=== PATIENT | female | born 1970 | race Caucasian/White ===

== ENCOUNTER → 2017-12-07 | Outpatient (CLI) | payer OTHER ==
--- NOTE | 2017-12-08 13:12 | MM ---
Reason for exam: screening (asymptomatic). Last mammogram was performed 1 year and 11 months ago. History: Took hormonal contraceptives for 10 years. Physical Findings: A clinical breast exam by your physician is recommended on an annual basis and results should be correlated with mammographic findings. MG Screening Mammo w CAD Bilateral CC and MLO view(s) were taken. Prior study comparison: January 14, 2016, bilateral MG screening mammo w CAD. January 04, 2014, bilateral digital screening mammo w/CAD. The breast tissue is heterogeneously dense. This may lower the sensitivity of mammography. There is no discrete abnormality. No significant changes when compared with prior studies. ASSESSMENT: Negative, BI-RAD 1 RECOMMENDATION: Routine screening mammogram of both breasts in 1 year.
== END | disposition home or self-care (01) ==
LOC: RADMAMWWP 16:59
PROVIDERS: ATTEND Obstetrics & Gynecology
DX: Z12.31 Encounter for screening mammogram for malignant neoplasm of breast (principal)
CPT/HCPCS: 77067

== ENCOUNTER 2018-10-03 02:33 | Inpatient (IN) | payer MEDICAID, OTHER ==
--- NOTE | 2018-10-03 03:09 | ED ---
General Adult HPI - General Chief complaint: Psychiatric Symptoms Stated complaint: mental health Time Seen by Provider: 10/03/18 02:48 Source: patient, RN notes reviewed, old records reviewed Mode of arrival: wheelchair Limitations: altered mental status - History of Present Illness Initial comments: 47-year-old female with history of psychiatric illness presents for mental health evaluation. Patient's states that the [place] government is out to get her, she told her family that they were planning to take her to [place] in the morning. According to her family members she has a daughter who has been admitted for psychiatric purposes in the past. And patient does have history of mental illness. Uncertain of what medication she is on. She states that she has infection, from her eyes. She is alert and oriented 3. The remainder of her comments are incoherent and nonsensical. Review of Systems ROS Statement: Those systems with pertinent positive or pertinent negative responses have been documented in the HPI. ROS Other: All systems not noted in ROS Statement are negative. Past Medical History Past Medical History: Diabetes Mellitus History of Any Multi-Drug Resistant Organisms: None Reported Past Surgical History: Section Past Psychological History: PTSD Smoking Status: Former smoker Past Alcohol Use History: None Reported Past Drug Use History: None Reported General Exam Limitations: altered mental status General appearance: alert, in no apparent distress Head exam: Present: atraumatic, normocephalic Eye exam: Present: normal appearance, PERRL ENT exam: Present: normal exam Neck exam: Present: normal inspection. Absent: tenderness, meningismus Respiratory exam: Present: normal lung sounds bilaterally. Absent: respiratory distress, wheezes Cardiovascular Exam: Present: regular rate, normal rhythm GI/Abdominal exam: Present: soft. Absent: distended, tenderness Extremities exam: Present: normal inspection, normal capillary refill. Absent: pedal edema Neurological exam: Present: alert, oriented X3. Absent: motor sensory deficit Expanded Focused psych exam: Present: pressured speech, psychomotor agitation, delusional , paranoid, flight of ideas Skin exam: Present: warm, dry, intact Course Vital Signs 10/03/18 02:57 Temperature 98.2 F Pulse Rate 120 H Respiratory 18 Rate Blood Pressure 148/93 O2 Sat by Pulse 95 Oximetry Medical Decision Making - Medical Decision Making 27-year-old female presenting for mental health evaluation. Patient is medically cleared and evaluated by EPS. She will be admitted to this institution for further psychiatric evaluation and treatment. Disposition Clinical Impression: Acute psychosis Disposition: ADMITTED IP TO THIS [facility] Condition: Stable Is patient prescribed a controlled substance at d/c from ED?: No Referrals: None,Stated [Primary Care Provider] - 1-2 days Decision to Admit Reason: Admit from EC Decision Date: 10/03/18 Decision Time: 05:23
[2018-10-03] MEDS ORDERED: MAG HYDROX/AL HYDROX/SIMETH 30 ML CUP PO PRN (07:27)
[2018-10-03] MEDS ORDERED: ZIPRASIDONE 20 MG VIAL IM PRN (07:27)
[2018-10-03] MEDS ORDERED: MAGNESIUM HYDROXIDE 2,400 MG/10 ML CUP PO PRN (07:27)
[2018-10-03] MEDS ORDERED: LORazepam 1 MG TAB PO PRN (07:27)
[2018-10-03] MEDS ORDERED: ACETAMINOPHEN TAB 325 MG TAB PO PRN (07:27)
[2018-10-03] MEDS: NICOTINE 14MG/24HR PATCH TRANSDERM SCH (09:50)
[2018-10-03] MEDS ORDERED: HALOPERIDOL LACTATE 5 MG/ML 1 ML VIAL IM PRN (10:03)
--- NOTE | 2018-10-03 10:15 | P.HP ---
Psychiatric H&P - . H&P Date: 10/03/18 History & Physical: Allergies Allergy/AdvReac Type Severity Reaction Status Date / Time No Known Allergies Allergy Unverified 10/03/18 07:27 Vital Signs Temp 100.2 F H 10/03/18 07:23 Pulse 115 H 10/03/18 07:23 Resp 18 10/03/18 07:23 BP 135/92 10/03/18 07:23 Pulse Ox 99 10/03/18 07:23 Intake & Output 10/02/18 10/03/18 10/03/18 18:59 06:59 18:59 Weight 79.379 kg 79.5 kg Assessment and Plan Assessment: HPI: This is a 47-year-old female with history of psychiatric illness presents for mental health evaluation. Patient's states that the [place] [employer] is out to get her, she told her family that they were planning to take her to [place] in the morning. According to her family members she has a daughter who has been admitted for psychiatric purposes in the past. And patient does have history of mental illness. Uncertain of what medication she is on. She states that she has infection, from her eyes. She is alert and oriented 3. The remainder of her comments are incoherent and nonsensical. patient presents to ED with family due to acute psychosis. patient refused to get out of vehicle, patient yelling, swearing, and states " youre not safe in your home because the [facility] is recording you while you're having sex and showing everyone Past Medical History Past Medical History: Diabetes Mellitus History of Any Multi-Drug Resistant Organisms: None Reported Past Surgical History: Section Past Psychological History: PTSD Smoking Status: Former smoker Past Alcohol Use History: None Reported Past Drug Use History: None Reported Musculoskeletal Examination - Abnormal/Involuntary Movements: [none, tremors, spasm, tics] Strength: [greater than antigravity (greater than/equal to 3/5) in all extremities, weakness:] Muscle Tone: [no impairment, dystonia, hypertonic/myoclonus, rigidity, flaccid] Gait: [grossly normal, antalgic, limping, in wheelchair, wide-based] Station: [grossly normal, unsteady, in wheelchair] Mental Status Examination - General Appearance: [ bizarre, appears older than stated age Speech/Language mute Attitude/Behavior: [guarded, irritable, withdrawn] Mood: [depressed affect, anxious, irritable, angry, fearful, hopelessness Affect: [ labile, blunted constricted Orientation: [unable to participate time, person, place situation] Thought Content: [ delusions, obsessions, phobias, other] Risk Factors: [???suicidal (ideations, plan), and/or Homicidal (ideations, plan) , other] Perception: [hallucinations (auditory, visual, tactile), other] Thought Processes: [ concrete, circumstantial, tangential Concentration/Attention Span: [ impaired] [Per observation and interview with the patient] Recent Memory: [ impaired] [0, 1, 2 or 3 out of 3 in 3 minutes] Remote Memory: [ impaired] [past events, as related history] Intelligence: [below average] [based on history, based on vocabulary, syntax, grammar, and content] Judgement: [ poor] [per patient's behavior/history of present illness] Insight: [ poor] [understanding severity of illness/history of present illness] Admitting Diagnosis: [bipolar affective disorder versus schizoaffective bipolar type] Patient Strengths - Setting and pursuing goals, hopes, dreams, aspirations: [x] Resources - social, interpersonal, monetary: [x] Patient Limitations: [medication, non-compliance, pathological/unsupported environment, no interests, intellectual impairment, Initial Plan of Care: [patient admitted on involuntary basis to psychiatric unit due to her inability to communicate and function and with her acute psychosis which present which decrease a communication barrier. She will also( haloperidol 2 mg so further evaluation of patient is able to include laboratory work that medicine needs and further psychiatric care. She'll be evaluated by nursing staff, social work and recreational therapy to be integrated in a hansen milieu therapeutic environment whereby she will be staffed and a multidisciplinary team approach on a daily basis for her progress and disposition.] Estimated Length of Stay: [5-7] Initial Discharge Plan: [[facility], [facility], referred to therapist Prognosis: guarded] Justification for Inpatient Hospitalization - [Hallucinations, delusions, agitation, anxiety, depression resulting in significant loss of functioning.] [Dangerous to self, others, or property with need for controlled environment.] [Emotional or behavioral conditions and complications requiring 24 hour medical and nursing care.] [Need for special drug therapy, or other therapeutic program requiring continuous hospitalization.] [Failure of social or occupational functioning.] [Inability to meet basic life and health needs.] [Legally mandated admission.] [ (1) Acute psychosis Current Visit: Yes Status: Acute Priority: High Code(s): F23 - BRIEF PSYCHOTIC DISORDER SNOMED Code(s): 88775178 Time with Patient: Less than 30
[2018-10-03] MEDS: SODIUM CHLORIDE 0.9% 1,000 ML IV SCH ×2 (10:27→12:29)
[2018-10-03 12:57] LABS: Glucose,Whole Blood 157 mg/dL (75-99)
[2018-10-03 15:28] LABS: Basophils % (A) 0 %; Eosinophils # (A) 0.1 k/uL (0-0.7); Eosinophils % (A) 1 %; HCT 40.8 % (34.0-46.0); HGB 13.6 gm/dL (11.4-16.0); Lymphocytes # (A) 1.9 k/uL (1.0-4.8); Lymphocytes % (A) 22 %; MCHC 33.4 g/dL (31.0-37.0); MCV 89.9 fL (80.0-100.0); Mean Platelet Volume 6.6; Monocytes # (A) 0.5 k/uL (0-1.0); Monocytes % (A) 5 %; Neutrophils # (A) 6.1 k/uL (1.3-7.7); Neutrophils % (A) 71 %; Platelet Count 338 k/uL (150-450); RBC 4.54 m/uL (3.80-5.40); WBC 8.6 k/uL (3.8-10.6)
[2018-10-03 15:43] LABS: ALT 27 U/L (9-52); AST 23 U/L (14-36); Albumin 4.9 g/dL (3.5-5.0); Alkaline Phosphatase 88 U/L (38-126); Anion Gap 18 mmol/L; Bilirubin, Delta 0.2 mg/dL (0.0-0.2); Bilirubin,Unconjugated 0.6 mg/dL (0.0-1.1); Blood Urea Nitrogen 15 mg/dL (7-17); Calcium 10.7 mg/dL (8.4-10.2); Carbon Dioxide 23 mmol/L (22-30); Chloride 99 mmol/L (98-107); Cholesterol 180 mg/dL (<200); Glucose 147 mg/dL (74-99); HDL Cholesterol 72 mg/dL (40-60); LDL Cholesterol,Calculated 85 mg/dL (0-99); Potassium 3.8 mmol/L (3.5-5.1); Sodium 140 mmol/L (137-145); Total Bilirubin 0.8 mg/dL (0.2-1.3); Total Protein 8.1 g/dL (6.3-8.2); Triglycerides 116 mg/dL (<150)
--- NOTE | 2018-10-03 16:08 | XR ---
EXAMINATION TYPE: XR chest 1V DATE OF EXAM: 10/03/2018 COMPARISON: None INDICATION: Fever TECHNIQUE: Single frontal view of the chest is obtained. FINDINGS: The heart size is normal. The pulmonary vasculature is normal. The lungs are clear. IMPRESSION: 1. No acute pulmonary process.
--- NOTE | 2018-10-03 16:42 | P.HPMEDMHU ---
History of Present Illness H&P Date: 10/03/18 Chief Complaint: Consult for MHU HPI The patient is a 47-year-old female with a history of psychiatric illnesses and that is admitted to the mental health unit with acute psychosis. Apparently the patient was having paranoid delusions of persecution reporting that the [place] [employer] was out to get her and planning to take her to [place], she also mentioned that she was not safe in her home as [facility] was reporting you while you were having sex and showing everyone the patient told EPS that she had an infection from her eyes but otherwise her comments were incoherent nonsensical due to her psychosis. The patient was not able to provide me with any medical history and was noncooperative and refused to answer any questions and was pretty mute during my interview and was refusing to have any lab work drawn. However review of the patient's record indicates that the patient was tachycardic and was noted to have a low-grade temperature of 100.2, also appears to have that type 2 diabetes listed under her past medical history Review of Systems ROS unobtainable: due to mental status (Patient mute and and uncooperative) Past Medical History Past Medical History: Diabetes Mellitus History of Any Multi-Drug Resistant Organisms: None Reported Past Surgical History: Section Past Psychological History: PTSD Smoking Status: Former smoker Past Alcohol Use History: None Reported Past Drug Use History: None Reported Medications and Allergies Allergies Allergy/AdvReac Type Severity Reaction Status Date / Time No Known Allergies Allergy Unverified 10/03/18 07:27 Physical Exam Vitals: Vital Signs Temp Pulse Pulse Resp BP BP Pulse Ox 10/03/18 16:07 98.4 F 124 H 16 143/88 98 10/03/18 07:23 100.2 F H 115 H 18 135/92 99 10/03/18 07:05 97.9 F 98 18 138/84 97 10/03/18 02:57 98.2 F 120 H 18 148/93 95 Intake and Output 10/03/18 10/03/18 10/03/18 06:59 14:59 22:59 Other: Weight 79.379 kg 79.5 kg Constitutional: Appears disheveled, mute, uncooperative Eyes: Anicteric sclerae, moist conjunctiva, no lid-lag, PERRLA ENMT: NC/AT,Oropharynx clear, no erythema, exudates Neck:Supple, FROM, no masses, or JVD, No carotid bruits; No thyromegaly Lungs: Clear to auscultation, Clear to percussion, Normal respiratory effort, no accessory muscle use Cardiovascular: Tachycardic with regular rhythm No murmurs, gallops, or rubs no peripheral edema Abdominal: Soft Nontender, nom distended, no guarding, no rebound or rigidity, Normoactive bowel sounds No hepatomegaly, No splenomegaly, No palpable mass No abdominal wall hernia noted Skin: Normal temperature, tone, texture, turgor, No induration No subcutaneous nodules, No rash, lesions, No ulcers Extremities:No digital cyanosis No clubbing, Pedal pulses intact and symmetrical Radial pulses intact and symmetrical Normal gait and station, No calf tenderness Psychiatric: Disheveled, confused, reportedly removing her clothing in public areas, Neuro: Muscles Strength 5/5 in all 4 extremities, Sensation to light touch grossly present throughout, Cranial nerves II-XII grossly intact. No focal sensory deficits Cranial Nerve Examination - Cranial Nerves Cranial Nerve II- Optic: Intact Cranial Nerve III- Oculomotor: Intact Cranial Nerve IV- Trochlear: Intact Cranial Nerve V- Trigeminal: Intact Cranial Nerve - Abducens: Intact Cranial Nerve VII- Facial: Intact Cranial Nerve VIII- Auditory: Intact Cranial Nerve IX- Glossopharyngeal: Intact Cranial Nerve X- Vagus: Intact Cranial Nerve XI- Accessory: Intact Cranial Nerve XII- Hypoglossal: Intact Results CBC & Chem 7: 10/03/18 15:16 10/03/18 15:16 Labs: Abnormal Lab Results - Last 24 Hours (Table) 10/03/18 10/03/18 Range/Units 12:43 15:16 Glucose 147 H (74-99) mg/dL POC Glucose (mg/dL) 157 H (75-99) mg/dL Calcium 10.7 H (8.4-10.2) mg/dL HDL Cholesterol 72 H (40-60) mg/dL Assessment and Plan (1) Acute psychosis Current Visit: Yes Status: Acute Priority: High Code(s): F23 - BRIEF PSYCHOTIC DISORDER SNOMED Code(s): 21617970 (2) Fever Current Visit: Yes Status: Acute Code(s): R50.9 - FEVER, UNSPECIFIED SNOMED Code(s): 235195963 (3) Tachycardia Current Visit: Yes Status: Acute Code(s): R00.0 - TACHYCARDIA, UNSPECIFIED SNOMED Code(s): 6248026 (4) Type 2 diabetes mellitus with hyperglycemia Current Visit: Yes Status: Acute Code(s): E11.65 - TYPE 2 DIABETES MELLITUS WITH HYPERGLYCEMIA SNOMED Code(s): 212687247966243 Plan: She was admitted to the mental health unit with acute psychosis will defer to acute inpatient psychiatry team regarding ongoing psychotropic therapy with cognitive behavioral therapy. Medically speaking the patient is tachycardic and febrile, there is concern for sirs possible sepsis, we'll obtain a CBC, CMP , serum lactate, UDS, urinalysis checks x-ray and blood cultures and proceed from there. Given patient's history also possibility of serotonin syndrome versus possible nopecific viral-type illness. We'll continue to follow her clinical course
[2018-10-03 18:07] LABS: Appearance,Urine Cloudy (Clear); Bacteria,Urine Occasional /hpf; Bilirubin,Urine Negative (Negative); Blood,Urine Negative (Negative); Color,Urine Yellow; Glucose,Urine (UA) Negative (Negative); Ketones,Urine 2+ (Negative); Leukocyte Esterase,Urine Small (Negative); Mucus,Urine Moderate /hpf; Nitrite,Urine Negative (Negative); Protein,Urine Trace (Negative); RBC,Urine 2 /hpf (0-5); Specific Gravity,Urine 1.013 (1.001-1.035); Squamous Epithelial Cell,Urine 3 /hpf (0-4); Urobilinogen,Urine <2.0 mg/dL (<2.0)
[2018-10-03 18:16] LABS: Amphetamine Screen,Urine Not Detected (NotDetected); Barbiturate Screen,Urine Not Detected (NotDetected); Benzodiazepines Screen,Urine Not Detected (NotDetected); Cocaine Screen,Urine Not Detected (NotDetected); Methadone Screen, Urine Not Detected (NotDetected); Opiate Screen,Urine Not Detected (NotDetected); Oxycodone Screen, Urine Not Detected (NotDetected); Phencyclidine Screen,Urine Not Detected (NotDetected); Tricyclic Antidepressant,Urine Not Detected (NotDetected); Urn Cannabinoid Scrn Not Detected (NotDetected)
[2018-10-03 21:27] LABS: Glucose,Whole Blood 113 mg/dL (75-99)
[2018-10-04 02:01] LABS: Glucose,Whole Blood 167 mg/dL (75-99)
[2018-10-04 05:05] LABS: Hemoglobin A1C 6.1 % (4.0-6.0)
[2018-10-04 06:38] LABS: Glucose,Whole Blood 110 mg/dL (75-99)
[2018-10-04] MEDS: NICOTINE 14MG/24HR PATCH TRANSDERM SCH (09:05)
--- NOTE | 2018-10-04 11:42 | P.PN ---
Subjective Progress Note Date: 10/04/18 Principal diagnosis: major depressive disorder-acute psychosis I feel so exhausted and tired and fatigued I not been able to sleep and the last 2 days. The doctor I saw [facility] had raised by Seroquel to 600 mg XL her and then decreased it to 300 mg and I felt weak dizzy and fell backwards and hit my head. 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 She has been and and has 2 children. She is on Medicaid and no other support. She lives alone and struggles about living alone with minimal financial assistance. Objective - Vital Signs Vital signs: Vital Signs Temp 98.2 F 10/04/18 01:22 Pulse 112 H 10/04/18 06:24 Resp 14 10/04/18 06:24 BP 121/76 10/04/18 06:24 Pulse Ox 95 10/03/18 21:18 Intake & Output 10/03/18 10/04/18 10/04/18 18:59 06:59 18:59 Weight 79.5 kg - Labs CBC & Chem 7: 10/03/18 15:16 10/03/18 15:16 Labs: Abnormal Lab Results - Last 24 Hours (Table) 10/03/18 10/03/18 10/03/18 Range/Units 12:43 15:16 15:16 Glucose 147 H (74-99) mg/dL POC Glucose (mg/dL) 157 H (75-99) mg/dL Hemoglobin A1c 6.1 H (4.0-6.0) % Calcium 10.7 H (8.4-10.2) mg/dL HDL Cholesterol 72 H (40-60) mg/dL Urine Appearance (Clear) Urine Protein (Negative) Urine Ketones (Negative) Ur Leukocyte Esterase (Negative) Urine WBC (0-5) /hpf Urine Bacteria (None) /hpf Urine Mucus (None) /hpf 10/03/18 10/03/18 10/04/18 Range/Units 18:01 21:23 01:49 Glucose (74-99) mg/dL POC Glucose (mg/dL) 113 H 167 H (75-99) mg/dL Hemoglobin A1c (4.0-6.0) % Calcium (8.4-10.2) mg/dL HDL Cholesterol (40-60) mg/dL Urine Appearance Cloudy H (Clear) Urine Protein Trace H (Negative) Urine Ketones 2+ H (Negative) Ur Leukocyte Esterase Small H (Negative) Urine WBC 11 H (0-5) /hpf Urine Bacteria Occasional H (None) /hpf Urine Mucus Moderate H (None) /hpf 10/04/18 Range/Units 06:37 Glucose (74-99) mg/dL POC Glucose (mg/dL) 110 H (75-99) mg/dL Hemoglobin A1c (4.0-6.0) % Calcium (8.4-10.2) mg/dL HDL Cholesterol (40-60) mg/dL Urine Appearance (Clear) Urine Protein (Negative) Urine Ketones (Negative) Ur Leukocyte Esterase (Negative) Urine WBC (0-5) /hpf Urine Bacteria (None) /hpf Urine Mucus (None) /hpf Microbiology - Last 24 Hours (Table) 10/03/18 18:01 Urine Culture - Preliminary Urine,Voided Assessment and Plan Assessment: HPI: This is a 47-year-old female with history of psychiatric illness presents for mental health evaluation. Patient's states that the [place] [employer] is out to get her, she told her family that they were planning to take her to [place] in the morning. According to her family members she has a daughter who has been admitted for psychiatric purposes in the past. And patient does have history of mental illness. Uncertain of what medication she is on. She states that she has infection, from her eyes. She is alert and oriented 3. The remainder of her comments are incoherent and nonsensical. patient presents to ED with family due to acute psychosis. patient refused to get out of vehicle, patient yelling, swearing, and states " youre not safe in your home because the [facility] is recording you while you're having sex and showing everyone Past Medical History Past Medical History: Diabetes Mellitus History of Any Multi-Drug Resistant Organisms: None Reported Past Surgical History: Section Past Psychological History: PTSD Smoking Status: Former smoker Past Alcohol Use History: None Reported Past Drug Use History: None Reported Musculoskeletal Examination - Abnormal/Involuntary Movements: [none, tremors, spasm, tics] Strength: [greater than antigravity (greater than/equal to 3/5) in all extremities, weakness:] Muscle Tone: [no impairment, dystonia, hypertonic/myoclonus, rigidity, flaccid] Gait: [grossly normal, antalgic, limping, in wheelchair, wide-based] Station: [grossly normal, unsteady, in wheelchair] Mental Status Examination - General Appearance: [ bizarre, appears older than stated age Speech/Language mute Attitude/Behavior: [guarded, irritable, withdrawn] Mood: [depressed affect, anxious, irritable, angry, fearful, hopelessness Affect: [ labile, blunted constricted Orientation: [unable to participate time, person, place situation] Thought Content: [ delusions, obsessions, phobias, other] Risk Factors: [???suicidal (ideations, plan), and/or Homicidal (ideations, plan) , other] Perception: [hallucinations (auditory, visual, tactile), other] Thought Processes: [ concrete, circumstantial, tangential Concentration/Attention Span: [ impaired] [Per observation and interview with the patient] Recent Memory: [ impaired] [0, 1, 2 or 3 out of 3 in 3 minutes] Remote Memory: [ impaired] [past events, as related history] Intelligence: [below average] [based on history, based on vocabulary, syntax, grammar, and content] Judgement: [ poor] [per patient's behavior/history of present illness] Insight: [ poor] [understanding severity of illness/history of present illness] Admitting Diagnosis: [Major depressive disorder with acute psychosis and Effexor withdrawal] Patient Strengths - Setting and pursuing goals, hopes, dreams, aspirations: [x] Resources - social, interpersonal, monetary: [x] Patient Limitations: [medication, non-compliance, pathological/unsupported environment, no interests, intellectual impairment, Initial Plan of Care: [patient admitted on involuntary basis to psychiatric unit due to her inability to communicate and function and with her acute psychosis which present which decrease a communication barrier. She will also( haloperidol 2 mg so further evaluation of patient is able to include laboratory work that medicine needs and further psychiatric care. She'll be evaluated by nursing staff, social work and recreational therapy to be integrated in a hansen milieu therapeutic environment whereby she will be staffed and a multidisciplinary team approach on a daily basis for her progress and disposition.] Estimated Length of Stay: [6] Initial Discharge Plan: [home, [facility], referred to therapist Prognosis: guarded] Justification for Inpatient Hospitalization - [Hallucinations, delusions, agitation, anxiety, depression resulting in significant loss of functioning.] [Dangerous to self, others, or property with need for controlled environment.] [Emotional or behavioral conditions and complications requiring 24 hour medical and nursing care.] [Need for special drug therapy, or other therapeutic program requiring continuous hospitalization.] [Failure of social or occupational functioning.] [Inability to meet basic life and health needs.] [Legally mandated admission.] [ (1) Acute psychosis Current Visit: Yes Status: Acute Priority: High Code(s): F23 - BRIEF PSYCHOTIC DISORDER SNOMED Code(s): 01227575 Plan: She has severe anxiety and will start with clonidine 0.1 mg twice a day, restart her Effexor at 75 mg XL by mouth daily at bedtime, Mirapex 0.5 mg by mouth daily at bedtime due to the fact that she was having difficulty with insomnia and Seroquel 600 mg was not helping.. She has more of a major depressive disorder with psychosis and Effexor withdrawal than any other diagnosis. 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 Time with Patient: Greater than 30
[2018-10-04 20:23] LABS: Glucose,Whole Blood 258 mg/dL (75-99)
[2018-10-04] MEDS ORDERED: VENLAFAXINE HCL ER 75 MG CAP PO SCH (21:00)
[2018-10-04] MEDS: NEOMYCIN-POLYMYXIN-HC OPHTH DROPS 7.5 ML BTL BOTH EYES SCH (22:21)
[2018-10-04] MEDS: PRAMIPEXOLE 0.5 MG TAB PO SCH (22:21)
[2018-10-04] MEDS: cloNIDine HCL 0.1 MG TAB PO SCH (22:21)
[2018-10-04] MEDS: INSULIN ASPART 100 UNIT/ML 1 ML 10 ML VIAL SQ SCH (22:26)
[2018-10-05] MEDS: SULFAMETHOX-TMP 800-160MG 1 EACH TAB PO SCH ×3 (00:10→20:35)
[2018-10-05 07:34] LABS: Glucose,Whole Blood 136 mg/dL (75-99)
[2018-10-05] MEDS: cloNIDine HCL 0.1 MG TAB PO SCH ×2 (09:31→20:35)
[2018-10-05] MEDS: INSULIN ASPART 100 UNIT/ML 1 ML 10 ML VIAL SQ SCH ×4 (09:31→20:27)
[2018-10-05] MEDS: NEOMYCIN-POLYMYXIN-HC OPHTH DROPS 7.5 ML BTL BOTH EYES SCH ×2 (09:31→20:37)
--- NOTE | 2018-10-05 10:11 | P.PN ---
Subjective Progress Note Date: 10/04/18 Patient much more conversive today, reports sinus-type issues, and eye discharge this morning, otherwise has no complaints. No acute events overnight , patient continues to be tachycardic. EKG confirming sinus tachycardia, suspect a component of dehydration. patient denies any urinary Symptoms today such as dysuria, urgency frequency or suprapubic pain Objective - Vital Signs Vital signs: Vital Signs Temp 98.2 F 10/04/18 01:22 Pulse 112 H 10/04/18 06:24 Resp 14 10/04/18 06:24 BP 121/76 10/04/18 06:24 Pulse Ox 95 10/03/18 21:18 Intake & Output 10/03/18 10/04/18 10/04/18 18:59 06:59 18:59 Weight 79.5 kg - Exam Constitutional: No acute distress, conversant, pleasant Eyes: Anicteric sclerae, moist conjunctiva, no lid-lag, PERRLA ENMT: NC/AT,Oropharynx clear, no erythema, exudates Neck:Supple, FROM, no masses, or JVD, No carotid bruits; No thyromegaly Lungs: Clear to auscultation, Clear to percussion, Normal respiratory effort, no accessory muscle use Cardiovascular: Tachycardic regular rhythm, No murmurs, gallops, or rubs no peripheral edema Abdominal: Soft Nontender, nom distended, no guarding, no rebound or rigidity, Normoactive bowel sounds No hepatomegaly, No splenomegaly, No palpable mass No abdominal wall hernia noted Skin: Normal temperature, tone, texture, turgor, No induration No subcutaneous nodules, No rash, lesions, No ulcers Extremities:No digital cyanosis No clubbing, Pedal pulses intact and symmetrical Radial pulses intact and symmetrical Normal gait and station, No calf tenderness Psychiatric: Alert and oriented to person, place and time, Appropriate affect Intact judgement Neuro: Muscles Strength 5/5 in all 4 extremities, Sensation to light touch grossly present throughout, Cranial nerves II-XII grossly intact. No focal sensory deficits - Labs CBC & Chem 7: 10/03/18 15:16 10/03/18 15:16 Labs: Abnormal Lab Results - Last 24 Hours (Table) 10/03/18 10/03/18 10/03/18 Range/Units 15:16 15:16 18:01 Glucose 147 H (74-99) mg/dL POC Glucose (mg/dL) (75-99) mg/dL Hemoglobin A1c 6.1 H (4.0-6.0) % Calcium 10.7 H (8.4-10.2) mg/dL HDL Cholesterol 72 H (40-60) mg/dL Urine Appearance Cloudy H (Clear) Urine Protein Trace H (Negative) Urine Ketones 2+ H (Negative) Ur Leukocyte Esterase Small H (Negative) Urine WBC 11 H (0-5) /hpf Urine Bacteria Occasional H (None) /hpf Urine Mucus Moderate H (None) /hpf 10/03/18 10/04/18 10/04/18 Range/Units 21:23 01:49 06:37 Glucose (74-99) mg/dL POC Glucose (mg/dL) 113 H 167 H 110 H (75-99) mg/dL Hemoglobin A1c (4.0-6.0) % Calcium (8.4-10.2) mg/dL HDL Cholesterol (40-60) mg/dL Urine Appearance (Clear) Urine Protein (Negative) Urine Ketones (Negative) Ur Leukocyte Esterase (Negative) Urine WBC (0-5) /hpf Urine Bacteria (None) /hpf Urine Mucus (None) /hpf Microbiology - Last 24 Hours (Table) 10/03/18 18:01 Urine Culture - Preliminary Urine,Voided Assessment and Plan (1) Tachycardia Narrative/Plan: * Likely secondary to medication withdrawal and/or superimposed on dehydration * EKG confirming sinus tachycardia, blood pressure elevated at times will obtain a 2-D echocardiogram * We'll continue to monitor, Current Visit: Yes Status: Acute Code(s): R00.0 - TACHYCARDIA, UNSPECIFIED SNOMED Code(s): 4257534 (2) Fever Narrative/Plan: * Patient has been afebrile * Possibly viral-type illness * Urine culture still pending, will hold off on antibiotics Current Visit: Yes Status: Resolved Code(s): R50.9 - FEVER, UNSPECIFIED SNOMED Code(s): 373372423 (3) Type 2 diabetes mellitus with hyperglycemia Narrative/Plan: * A1c of 6.1, continue to monitor blood sugars Current Visit: Yes Status: Acute Code(s): E11.65 - TYPE 2 DIABETES MELLITUS WITH HYPERGLYCEMIA SNOMED Code(s): 543201973969058 (4) Acute psychosis Narrative/Plan: * Defer to inpatient psychiatry team Current Visit: Yes Status: Acute Priority: High Code(s): F23 - BRIEF PSYCHOTIC DISORDER SNOMED Code(s): 18053272
--- NOTE | 2018-10-05 10:15 | P.PN ---
Subjective Progress Note Date: 10/05/18 Patient much more conversive today, complains of sloughing of the skin of on her feet. No acute events overnight, patient continues to be tachycardic. EKG confirming sinus tachycardia, suspect a component of dehydration. patient denies any urinary Symptoms today such as dysuria, urgency frequency or suprapubic pain. Patient reporting today that she was previously on metformin and gabapentin and Lyrica for type 2 diabetes with peripheral neuropathy, patient refusing any treatment for neuropathy with gabapentin or Lyrica today. Objective - Vital Signs Vital signs: Vital Signs Temp 98.2 F 10/04/18 01:22 Pulse 129 H 10/04/18 22:20 Resp 16 10/04/18 22:20 BP 133/100 10/04/18 22:20 Pulse Ox 95 10/03/18 21:18 - Exam Constitutional: No acute distress, conversant, pleasant Eyes: Anicteric sclerae, moist conjunctiva, no lid-lag, PERRLA ENMT: NC/AT,Oropharynx clear, no erythema, exudates Neck:Supple, FROM, no masses, or JVD, No carotid bruits; No thyromegaly Lungs: Clear to auscultation, Clear to percussion, Normal respiratory effort, no accessory muscle use Cardiovascular: Tachycardic regular rhythm, No murmurs, gallops, or rubs no peripheral edema Abdominal: Soft Nontender, nom distended, no guarding, no rebound or rigidity, Normoactive bowel sounds No hepatomegaly, No splenomegaly, No palpable mass No abdominal wall hernia noted Skin: Noted exfoliation on the sides of the feet bilaterally and between the toes with some mild erythema, complains of pruritus Extremities:No digital cyanosis No clubbing, Pedal pulses intact and symmetrical Radial pulses intact and symmetrical Normal gait and station, No calf tenderness Psychiatric: Alert and oriented to person, place and time, Appropriate affect Intact judgement Neuro: Muscles Strength 5/5 in all 4 extremities, Sensation to light touch grossly present throughout, Cranial nerves II-XII grossly intact. No focal sensory deficits - Labs CBC & Chem 7: 10/03/18 15:16 10/03/18 15:16 Labs: Abnormal Lab Results - Last 24 Hours (Table) 10/04/18 10/05/18 Range/Units 20:22 07:07 POC Glucose (mg/dL) 258 H 136 H (75-99) mg/dL Microbiology - Last 24 Hours (Table) 10/03/18 18:01 Urine Culture - Preliminary Urine,Voided Gram Neg Bacilli 10/03/18 15:16 Blood Culture - Preliminary Blood No Growth after 24 hours Assessment and Plan (1) Sepsis Narrative/Plan: * Secondary to UTI, urine cultures growing gram-negative bacilli * Patient started on Bactrim overnight * Continues to be afebrile, but is persistently tachycardic, EKG confirming sinus tachycardia Echocardiogram pending Current Visit: Yes Status: Acute Code(s): A41.9 - SEPSIS, UNSPECIFIED ORGANISM SNOMED Code(s): 93303836 (2) UTI (urinary tract infection) Narrative/Plan: * And treatment as above with Bactrim Current Visit: Yes Status: Acute Code(s): N39.0 - URINARY TRACT INFECTION, SITE NOT SPECIFIED SNOMED Code(s): 60043407 (3) Tachycardia Current Visit: Yes Status: Acute Code(s): R00.0 - TACHYCARDIA, UNSPECIFIED SNOMED Code(s): 1571365 (4) Type 2 diabetes mellitus with hyperglycemia Narrative/Plan: * A1c of 6.1, continue to monitor blood sugars * We'll restart the patient on metformin 500 mg by mouth twice a day Current Visit: Yes Status: Acute Code(s): E11.65 - TYPE 2 DIABETES MELLITUS WITH HYPERGLYCEMIA SNOMED Code(s): 729030029839490 (5) Athletes foot Narrative/Plan: * Initiated Clomitrizaloe /betamesne lotion for feet bilaterally twice a day Current Visit: Yes Status: Acute Code(s): B35.3 - TINEA PEDIS SNOMED Code( s): 7881871 (6) Acute psychosis Narrative/Plan: * Defer to inpatient psychiatry team Current Visit: Yes Status: Acute Priority: High Code(s): F23 - BRIEF PSYCHOTIC DISORDER SNOMED Code(s): 91377348
--- NOTE | 2018-10-05 10:16 | P.PN ---
Subjective Progress Note Date: 10/05/18 Principal diagnosis: major depressive disorder-acute psychosis I feel so exhausted and tired and fatigued I not been able to sleep and the last 2 days. The doctor I saw [facility] had raised by Seroquel to 600 mg XL her and then decreased it to 300 mg and I felt weak dizzy and fell backwards and hit my head. 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 She has been and and has 2 children. She is on Medicaid and no other support. She lives alone and struggles about living alone with minimal financial assistance. 10/05/2018: Is still remain exhausted and I would like to rest today. I encouraged patient around bed and participate in groups but she tends to isolate and hide. Discussed the adjustment in medications venlafaxine 250 mg bedtime and Seroquel 50 mg twice a day. She is also getting Mirapex 0.5 mg at bedtime. Objective - Vital Signs Vital signs: Vital Signs Temp 98.2 F 10/04/18 01:22 Pulse 129 H 10/04/18 22:20 Resp 16 10/04/18 22:20 BP 133/100 10/04/18 22:20 Pulse Ox 95 10/03/18 21:18 - Labs CBC & Chem 7: 10/03/18 15:16 10/03/18 15:16 Labs: Abnormal Lab Results - Last 24 Hours (Table) 10/04/18 10/05/18 Range/Units 20:22 07:07 POC Glucose (mg/dL) 258 H 136 H (75-99) mg/dL Microbiology - Last 24 Hours (Table) 10/03/18 18:01 Urine Culture - Preliminary Urine,Voided Gram Neg Bacilli 10/03/18 15:16 Blood Culture - Preliminary Blood No Growth after 24 hours Assessment and Plan Assessment: HPI: This is a 47-year-old female with history of psychiatric illness presents for mental health evaluation. Patient's states that the [place] government is out to get her, she told her family that they were planning to take her to [place] in the morning. According to her family members she has a daughter who has been admitted for psychiatric purposes in the past. And patient does have history of mental illness. Uncertain of what medication she is on. She states that she has infection, from her eyes. She is alert and oriented 3. The remainder of her comments are incoherent and nonsensical. patient presents to ED with family due to acute psychosis. patient refused to get out of vehicle, patient yelling, swearing, and states " youre not safe in your home because the [facility] is recording you while you're having sex and showing everyone Past Medical History Past Medical History: Diabetes Mellitus History of Any Multi-Drug Resistant Organisms: None Reported Past Surgical History: Section Past Psychological History: PTSD Smoking Status: Former smoker Past Alcohol Use History: None Reported Past Drug Use History: None Reported Musculoskeletal Examination - Abnormal/Involuntary Movements: [none, tremors, spasm, tics] Strength: [greater than antigravity (greater than/equal to 3/5) in all extremities, weakness:] Muscle Tone: [no impairment, dystonia, hypertonic/myoclonus, rigidity, flaccid] Gait: [grossly normal, antalgic, limping, in wheelchair, wide-based] Station: [grossly normal, unsteady, in wheelchair] Mental Status Examination - General Appearance: [ bizarre, appears older than stated age Speech/Language mute Attitude/Behavior: [guarded, irritable, withdrawn] Mood: [depressed affect, anxious, irritable, angry, fearful, hopelessness Affect: [ labile, blunted constricted Orientation: [unable to participate time, person, place situation] Thought Content: [ delusions, obsessions, phobias, other] Risk Factors: [???suicidal (ideations, plan), and/or Homicidal (ideations, plan) , other] Perception: [hallucinations (auditory, visual, tactile), other] Thought Processes: [ concrete, circumstantial, tangential Concentration/Attention Span: [ impaired] [Per observation and interview with the patient] Recent Memory: [ impaired] [0, 1, 2 or 3 out of 3 in 3 minutes] Remote Memory: [ impaired] [past events, as related history] Intelligence: [below average] [based on history, based on vocabulary, syntax, grammar, and content] Judgement: [ poor] [per patient's behavior/history of present illness] Insight: [ poor] [understanding severity of illness/history of present illness] Admitting Diagnosis: [Major depressive disorder with acute psychosis and Effexor withdrawal] Patient Strengths - Setting and pursuing goals, hopes, dreams, aspirations: [x] Resources - social, interpersonal, monetary: [x] Patient Limitations: [medication, non-compliance, pathological/unsupported environment, no interests, intellectual impairment, Initial Plan of Care: [patient admitted on involuntary basis to psychiatric unit due to her inability to communicate and function and with her acute psychosis which present which decrease a communication barrier. She will also( haloperidol 2 mg so further evaluation of patient is able to include laboratory work that medicine needs and further psychiatric care. She'll be evaluated by nursing staff, social work and recreational therapy to be integrated in a hansen milieu therapeutic environment whereby she will be staffed and a multidisciplinary team approach on a daily basis for her progress and disposition.] Estimated Length of Stay: [5 days] Initial Discharge Plan: [[place], [facility], referred to therapist Prognosis: guarded] she is not participating in care at the current time Justification for Inpatient Hospitalization - [Hallucinations, delusions, agitation, anxiety, depression resulting in significant loss of functioning.] [Dangerous to self, others, or property with need for controlled environment.] [Emotional or behavioral conditions and complications requiring 24 hour medical and nursing care.] [Need for special drug therapy, or other therapeutic program requiring continuous hospitalization.] [Failure of social or occupational functioning.] [Inability to meet basic life and health needs.] [Legally mandated admission.] [ (1) Acute psychosis Current Visit: Yes Status: Acute Priority: High Code(s): F23 - BRIEF PSYCHOTIC DISORDER SNOMED Code(s): 59214761 Plan: She has severe anxiety and will start with clonidine 0.1 mg twice a day, restart her Effexor at 150 mg XL by mouth daily at bedtime, Mirapex 0.5 mg by mouth daily at bedtime due to the fact that she was having difficulty with insomnia and Seroquel 600 mg was not helping.. She has more of a major depressive disorder with psychosis and Effexor withdrawal than any other diagnosis. 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 Will add Seroquel 25 mg by mouth twice a day for augmentation of venlafaxine. Time with Patient: Less than 30
[2018-10-05] MEDS: metFORMIN 500 MG TAB PO SCH ×2 (11:14→17:51)
[2018-10-05 12:52] LABS: Glucose,Whole Blood 216 mg/dL (75-99)
[2018-10-05 17:26] LABS: Glucose,Whole Blood 243 mg/dL (75-99)
[2018-10-05 20:04] LABS: Glucose,Whole Blood 141 mg/dL (75-99)
[2018-10-05] MEDS: PRAMIPEXOLE 0.5 MG TAB PO SCH (20:35)
[2018-10-05] MEDS: QUEtiapine 25 MG TAB PO SCH (20:35)
[2018-10-05] MEDS: CLOTRIMAZOLE/BETAMETH 1-0.05% LOTION 30 ML BTL TOPICAL SCH (20:37)
[2018-10-05] MEDS ORDERED: VENLAFAXINE HCL ER 150 MG CAP PO SCH (21:00)
[2018-10-06 06:46] LABS: Glucose,Whole Blood 125 mg/dL (75-99)
[2018-10-06] MEDS: INSULIN ASPART 100 UNIT/ML 1 ML 10 ML VIAL SQ SCH ×4 (07:54→20:19)
[2018-10-06] MEDS: metFORMIN 500 MG TAB PO SCH ×2 (08:21→17:47)
[2018-10-06] MEDS: QUEtiapine 25 MG TAB PO SCH ×2 (08:21→21:51)
[2018-10-06] MEDS: cloNIDine HCL 0.1 MG TAB PO SCH ×2 (08:21→21:50)
[2018-10-06] MEDS: NEOMYCIN-POLYMYXIN-HC OPHTH DROPS 7.5 ML BTL BOTH EYES SCH ×2 (08:22→21:51)
[2018-10-06] MEDS: CLOTRIMAZOLE/BETAMETH 1-0.05% LOTION 30 ML BTL TOPICAL SCH ×2 (08:22→21:51)
[2018-10-06] MEDS: SULFAMETHOX-TMP 800-160MG 1 EACH TAB PO SCH ×2 (08:22→22:28)
--- NOTE | 2018-10-06 11:49 | P.PN ---
Subjective Progress Note Date: 10/06/18 Principal diagnosis: major depressive disorder-acute psychosis I feel so exhausted and tired and fatigued I not been able to sleep and the last 2 days. The doctor I saw [facility] had raised by Seroquel to 600 mg XL her and then decreased it to 300 mg and I felt weak dizzy and fell backwards and hit my head. 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 She has been and and has 2 children. She is on Medicaid and no other support. She lives alone and struggles about living alone with minimal financial assistance. 10/05/2018: Is still remain exhausted and I would like to rest today. I encouraged patient around bed and participate in groups but she tends to isolate and hide. Discussed the adjustment in medications venlafaxine 225 mg bedtime and stop Seroquel 50 mg twice a day and start trazodone 150 mg at bedtime along with 3 mg of Invega. Objective - Vital Signs Vital signs: Vital Signs Temp 98 F 10/06/18 06:40 Pulse 137 H 10/06/18 08:25 Resp 18 10/06/18 08:25 BP 127/85 10/06/18 08:25 Pulse Ox 95 10/03/18 21:18 - Labs CBC & Chem 7: 10/03/18 15:16 10/03/18 15:16 Labs: Abnormal Lab Results - Last 24 Hours (Table) 10/05/18 10/05/18 10/05/18 Range/Units 12:34 17:22 20:03 POC Glucose (mg/dL) 216 H 243 H 141 H (75-99) mg/dL 10/06/18 Range/Units 06:43 POC Glucose (mg/dL) 125 H (75-99) mg/dL Microbiology - Last 24 Hours (Table) 10/03/18 18:01 Urine Culture - Final Urine,Voided Escherichia coli 10/03/18 15:16 Blood Culture - Preliminary Blood No Growth after 48 hours Assessment and Plan Assessment: HPI: This is a 47-year-old female with history of psychiatric illness presents for mental health evaluation. Patient's states that the [place] government is out to get her, she told her family that they were planning to take her to [place] in the morning. According to her family members she has a daughter who has been admitted for psychiatric purposes in the past. And patient does have history of mental illness. Uncertain of what medication she is on. She states that she has infection, from her eyes. She is alert and oriented 3. The remainder of her comments are incoherent and nonsensical. patient presents to ED with family due to acute psychosis. patient refused to get out of vehicle, patient yelling, swearing, and states " youre not safe in your home because the [facility] [employer] is recording you while you're having sex and showing everyone Past Medical History Past Medical History: Diabetes Mellitus History of Any Multi-Drug Resistant Organisms: None Reported Past Surgical History: Section Past Psychological History: PTSD Smoking Status: Former smoker Past Alcohol Use History: None Reported Past Drug Use History: None Reported Musculoskeletal Examination - Abnormal/Involuntary Movements: [none, tremors, spasm, tics] Strength: [greater than antigravity (greater than/equal to 3/5) in all extremities, weakness:] Muscle Tone: [no impairment, dystonia, hypertonic/myoclonus, rigidity, flaccid] Gait: [grossly normal, antalgic, limping, in wheelchair, wide-based] Station: [grossly normal, unsteady, in wheelchair] Mental Status Examination - General Appearance: [ bizarre, appears older than stated age Speech/Language mute Attitude/Behavior: [guarded, irritable, withdrawn] Mood: [depressed affect, anxious, irritable, angry, fearful, hopelessness Affect: [ labile, blunted constricted Orientation: [unable to participate time, person, place situation] Thought Content: [ delusions, obsessions, phobias, other] Risk Factors: [???suicidal (ideations, plan), and/or Homicidal (ideations, plan) , other] Perception: [hallucinations (auditory, visual, tactile), other] Thought Processes: [ concrete, circumstantial, tangential Concentration/Attention Span: [ impaired] [Per observation and interview with the patient] Recent Memory: [ impaired] [0, 1, 2 or 3 out of 3 in 3 minutes] Remote Memory: [ impaired] [past events, as related history] Intelligence: [below average] [based on history, based on vocabulary, syntax, grammar, and content] Judgement: [ poor] [per patient's behavior/history of present illness] Insight: [ poor] [understanding severity of illness/history of present illness] Admitting Diagnosis: [Major depressive disorder with acute psychosis and Effexor withdrawal] Patient Strengths - Setting and pursuing goals, hopes, dreams, aspirations: [x] Resources - social, interpersonal, monetary: [x] Patient Limitations: [medication, non-compliance, pathological/unsupported environment, no interests, intellectual impairment, Initial Plan of Care: [patient admitted on involuntary basis to psychiatric unit due to her inability to communicate and function and with her acute psychosis which present which decrease a communication barrier. She will also( haloperidol 2 mg so further evaluation of patient is able to include laboratory work that medicine needs and further psychiatric care. She'll be evaluated by nursing staff, social work and recreational therapy to be integrated in a hansen milieu therapeutic environment whereby she will be staffed and a multidisciplinary team approach on a daily basis for her progress and disposition.] Estimated Length of Stay: [5 days] Initial Discharge Plan: [home, [facility], referred to therapist Prognosis: guarded] she is not participating in care at the current time Justification for Inpatient Hospitalization - [Hallucinations, delusions, agitation, anxiety, depression resulting in significant loss of functioning.] [Dangerous to self, others, or property with need for controlled environment.] [Emotional or behavioral conditions and complications requiring 24 hour medical and nursing care.] [Need for special drug therapy, or other therapeutic program requiring continuous hospitalization.] [Failure of social or occupational functioning.] [Inability to meet basic life and health needs.] [Legally mandated admission.] [ (1) Acute psychosis Current Visit: Yes Status: Acute Priority: High Code(s): F23 - BRIEF PSYCHOTIC DISORDER SNOMED Code(s): 67616125 Plan: She has severe anxiety and will start with clonidine 0.1 mg twice a day, restart her Effexor at 225 mg XL by mouth daily at bedtime, Invega 3 mg mouth daily at bedtime due to the fact that she was having difficulty with insomnia She has more of a major depressive disorder with psychosis and Effexor withdrawal than any other diagnosis. 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 Change to Invega 3 mg by mouth daily at bedtime and trazodone 150 mg by mouth daily at bedtime for depression and sleep. She remains tense and irritable agitating and unable to focus and concentrate and is quite delusional at times. Time with Patient: Less than 30
[2018-10-06 12:22] LABS: Glucose,Whole Blood 183 mg/dL (75-99)
[2018-10-06 17:22] LABS: Glucose,Whole Blood 154 mg/dL (75-99)
[2018-10-06 20:14] LABS: Glucose,Whole Blood 153 mg/dL (75-99)
[2018-10-06] MEDS: PALIPERIDONE 3 MG TAB.ER.24 PO SCH (21:51)
[2018-10-06] MEDS: traZODone HCL 50 MG TAB PO SCH (21:52)
[2018-10-07 06:27] LABS: Glucose,Whole Blood 154 mg/dL (75-99)
[2018-10-07] MEDS: INSULIN ASPART 100 UNIT/ML 1 ML 10 ML VIAL SQ SCH ×4 (07:53→20:27)
[2018-10-07] MEDS: metFORMIN 500 MG TAB PO SCH ×2 (07:54→17:56)
[2018-10-07] MEDS: NEOMYCIN-POLYMYXIN-HC OPHTH DROPS 7.5 ML BTL BOTH EYES SCH ×2 (07:54→20:35)
[2018-10-07] MEDS: QUEtiapine 25 MG TAB PO SCH ×3 (07:54→20:35)
[2018-10-07] MEDS: cloNIDine HCL 0.1 MG TAB PO SCH ×3 (07:55→20:34)
[2018-10-07] MEDS: VENLAFAXINE HCL ER 75 MG CAP PO SCH (07:55)
[2018-10-07] MEDS: CLOTRIMAZOLE/BETAMETH 1-0.05% LOTION 30 ML BTL TOPICAL SCH ×3 (07:55→20:36)
[2018-10-07] MEDS: SULFAMETHOX-TMP 800-160MG 1 EACH TAB PO SCH ×2 (07:56→21:13)
[2018-10-07 12:03] LABS: Glucose,Whole Blood 130 mg/dL (75-99)
--- NOTE | 2018-10-07 13:54 | P.PN ---
Progress Note - Text Progress Note Date: 10/07/18 Interval history: Patient is seen in cross coverage today. She is seen in the hallway, does not make any verbalizations. She does not come for the interview today. She does not really respond to me inquiring to her about the interview. Mental status exam: She is found in the hallway. She does not verbalize anything. She does not really respond to me inquiring regarding meeting with her for the interview. She is noted to be placing her hand over the mural on the wall. She does not really exhibit any eye contact. She does not show any agitation. Plan: Patient will be maintained on current psychotropic medication regimen. Continue to monitor for any medication side effects and monitor her ongoing response to treatment. We'll attempt to interview the patient again tomorrow.
[2018-10-07 17:07] LABS: Glucose,Whole Blood 144 mg/dL (75-99)
[2018-10-07] MEDS: PALIPERIDONE 3 MG TAB.ER.24 PO SCH (20:34)
[2018-10-07] MEDS: traZODone HCL 50 MG TAB PO SCH (20:35)
[2018-10-07 20:48] LABS: Glucose,Whole Blood 151 mg/dL (75-99)
[2018-10-08 06:31] LABS: Glucose,Whole Blood 112 mg/dL (75-99)
[2018-10-08] MEDS: INSULIN ASPART 100 UNIT/ML 1 ML 10 ML VIAL SQ SCH ×4 (08:24→20:58)
[2018-10-08] MEDS: VENLAFAXINE HCL ER 75 MG CAP PO SCH (08:25)
[2018-10-08] MEDS: cloNIDine HCL 0.1 MG TAB PO SCH ×3 (08:25→21:58)
[2018-10-08] MEDS: metFORMIN 500 MG TAB PO SCH ×2 (08:25→17:37)
[2018-10-08] MEDS: SULFAMETHOX-TMP 800-160MG 1 EACH TAB PO SCH ×2 (08:25→21:58)
[2018-10-08] MEDS: QUEtiapine 25 MG TAB PO SCH ×3 (08:26→21:58)
[2018-10-08] MEDS: CLOTRIMAZOLE/BETAMETH 1-0.05% LOTION 30 ML BTL TOPICAL SCH ×3 (08:26→21:58)
[2018-10-08] MEDS: NEOMYCIN-POLYMYXIN-HC OPHTH DROPS 7.5 ML BTL BOTH EYES SCH ×2 (08:28→21:58)
[2018-10-08 12:12] LABS: Glucose,Whole Blood 115 mg/dL (75-99)
--- NOTE | 2018-10-08 16:48 | P.PN ---
Progress Note - Text Progress Note Date: 10/08/18 Interval history: Patient is seen again in cross coverage today. She reports that she feels like the medication is making her feel shaky and jittery. She makes reference to her feet turning purple in black. She relates that she was on a higher dose of Seroquel 600 mg and she had been having side effects she reports is like nosebleeds and also makes seems to make reference to blood in her stool and an infection. Her dose of Seroquel has been decreased. Mental status exam: She is agreeable to come to the interview room today. Her speech is fluent, not rapid or pressured. Her thought processes seem to show some disorganization. She describes her mood as "okay." She denies any thoughts of harm to self or others. She denies any hallucinations. Plan: We'll maintain current psychotropic medication regimen as is. Continue to monitor for any medication side effects and she will discuss potential side effects further with Dr. Clay tomorrow. Continue to monitor her ongoing response to treatment.
[2018-10-08 17:13] LABS: Glucose,Whole Blood 98 mg/dL (75-99)
[2018-10-08 20:45] LABS: Glucose,Whole Blood 113 mg/dL (75-99)
[2018-10-08] MEDS: traZODone HCL 50 MG TAB PO SCH (21:58)
[2018-10-08] MEDS: PALIPERIDONE 3 MG TAB.ER.24 PO SCH (21:58)
[2018-10-09 06:30] LABS: Glucose,Whole Blood 114 mg/dL (75-99)
[2018-10-09] MEDS: INSULIN ASPART 100 UNIT/ML 1 ML 10 ML VIAL SQ SCH ×4 (07:33→21:03)
[2018-10-09] MEDS: metFORMIN 500 MG TAB PO SCH ×2 (09:56→18:00)
[2018-10-09] MEDS: cloNIDine HCL 0.1 MG TAB PO SCH ×2 (09:56→10:31)
[2018-10-09] MEDS: NEOMYCIN-POLYMYXIN-HC OPHTH DROPS 7.5 ML BTL BOTH EYES SCH ×2 (10:14→21:03)
[2018-10-09] MEDS: QUEtiapine 25 MG TAB PO SCH (10:14)
[2018-10-09] MEDS: CLOTRIMAZOLE/BETAMETH 1-0.05% LOTION 30 ML BTL TOPICAL SCH ×2 (10:16→21:02)
[2018-10-09] MEDS: SULFAMETHOX-TMP 800-160MG 1 EACH TAB PO SCH ×2 (10:16→20:59)
[2018-10-09] MEDS: VENLAFAXINE HCL ER 75 MG CAP PO SCH ×2 (10:18→10:32)
--- NOTE | 2018-10-09 12:06 | P.PN ---
Subjective Progress Note Date: 10/09/18 Principal diagnosis: major depressive disorder-acute psychosis I feel so exhausted and tired and fatigued I not been able to sleep and the last 2 days. The doctor I saw [facility] had raised by Seroquel to 600 mg XL her and then decreased it to 300 mg and I felt weak dizzy and fell backwards and hit my head. 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 She has been and and has 2 children. She is on Medicaid and no other support. She lives alone and struggles about living alone with minimal financial assistance. 10/05/2018: Is still remain exhausted and I would like to rest today. I encouraged patient around bed and participate in groups but she tends to isolate and hide. Discussed the adjustment in medications venlafaxine 225 mg bedtime and stop Seroquel 50 mg twice a day and start trazodone 150 mg at bedtime along with 3 mg of Invega. Objective - Vital Signs Vital signs: Vital Signs Temp 97.6 F 10/09/18 03:51 Pulse 102 H 10/09/18 03:51 Resp 12 10/09/18 03:51 BP 114/61 10/09/18 03:51 Pulse Ox 95 10/03/18 21:18 Intake & Output 10/08/18 10/09/18 10/09/18 18:59 06:59 18:59 Weight 80.6 kg - Labs CBC & Chem 7: 10/03/18 15:16 10/03/18 15:16 Labs: Abnormal Lab Results - Last 24 Hours (Table) 10/08/18 10/08/18 10/09/18 Range/Units 12:07 20:32 06:16 POC Glucose (mg/dL) 115 H 113 H 114 H (75-99) mg/dL Microbiology - Last 24 Hours (Table) 10/03/18 15:16 Blood Culture - Preliminary Blood No Growth after 120 hours Assessment and Plan Assessment: HPI: This is a 47-year-old female with history of psychiatric illness presents for mental health evaluation. Patient's states that the [place] government is out to get her, she told her family that they were planning to take her to [place] in the morning. According to her family members she has a daughter who has been admitted for psychiatric purposes in the past. And patient does have history of mental illness. Uncertain of what medication she is on. She states that she has infection, from her eyes. She is alert and oriented 3. The remainder of her comments are incoherent and nonsensical. patient presents to ED with family due to acute psychosis. patient refused to get out of vehicle, patient yelling, swearing, and states " youre not safe in your home because the [facility] is recording you while you're having sex and showing everyone Past Medical History Past Medical History: Diabetes Mellitus History of Any Multi-Drug Resistant Organisms: None Reported Past Surgical History: Section Past Psychological History: PTSD Smoking Status: Former smoker Past Alcohol Use History: None Reported Past Drug Use History: None Reported Musculoskeletal Examination - Abnormal/Involuntary Movements: [none, tremors, spasm, tics] Strength: [greater than antigravity (greater than/equal to 3/5) in all extremities, weakness:] Muscle Tone: [no impairment, dystonia, hypertonic/myoclonus, rigidity, flaccid] Gait: [grossly normal, antalgic, limping, in wheelchair, wide-based] Station: [grossly normal, unsteady, in wheelchair] Mental Status Examination - General Appearance: [ bizarre, appears older than stated age Speech/Language mute Attitude/Behavior: [guarded, irritable, withdrawn] Mood: [depressed affect, anxious, irritable, angry, fearful, hopelessness Affect: [ labile, blunted constricted Orientation: [unable to participate time, person, place situation] Thought Content: [ delusions, obsessions, phobias, other] Risk Factors: [???suicidal (ideations, plan), and/or Homicidal (ideations, plan) , other] Perception: [hallucinations (auditory, visual, tactile), other] Thought Processes: [ concrete, circumstantial, tangential Concentration/Attention Span: [ impaired] [Per observation and interview with the patient] Recent Memory: [ impaired] [0, 1, 2 or 3 out of 3 in 3 minutes] Remote Memory: [ impaired] [past events, as related history] Intelligence: [below average] [based on history, based on vocabulary, syntax, grammar, and content] Judgement: [ poor] [per patient's behavior/history of present illness] Insight: [ poor] [understanding severity of illness/history of present illness] Admitting Diagnosis: [Major depressive disorder with acute psychosis and Effexor withdrawal] Patient Strengths - Setting and pursuing goals, hopes, dreams, aspirations: [x] Resources - social, interpersonal, monetary: [x] Patient Limitations: [medication, non-compliance, pathological/unsupported environment, no interests, intellectual impairment, Initial Plan of Care: [patient admitted on involuntary basis to psychiatric unit due to her inability to communicate and function and with her acute psychosis which present which decrease a communication barrier. She will also( haloperidol 2 mg so further evaluation of patient is able to include laboratory work that medicine needs and further psychiatric care. She'll be evaluated by nursing staff, social work and recreational therapy to be integrated in a hansen milieu therapeutic environment whereby she will be staffed and a multidisciplinary team approach on a daily basis for her progress and disposition.] Estimated Length of Stay: [5 days] Initial Discharge Plan: [home, [facility], referred to therapist Prognosis: guarded] she is not participating in care at the current time Justification for Inpatient Hospitalization - [Hallucinations, delusions, agitation, anxiety, depression resulting in significant loss of functioning.] [Dangerous to self, others, or property with need for controlled environment.] [Emotional or behavioral conditions and complications requiring 24 hour medical and nursing care.] [Need for special drug therapy, or other therapeutic program requiring continuous hospitalization.] [Failure of social or occupational functioning.] [Inability to meet basic life and health needs.] [Legally mandated admission.] [ (1) Acute psychosis Current Visit: Yes Status: Acute Priority: High Code(s): F23 - BRIEF PSYCHOTIC DISORDER SNOMED Code(s): 70317659 Plan: She has severe anxiety and will stop clonidine 0.1 mg twice a day, restart her Effexor at 225 mg XL by mouth daily at bedtime, Invega 3 mg mouth daily at bedtime due to the fact that she was having difficulty with insomnia She has more of a major depressive disorder with psychosis and Effexor withdrawal than any other diagnosis. 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 Change to Invega 6 mg by mouth daily at bedtime and trazodone 150 mg by mouth daily at bedtime for depression and sleep. She remains tense and irritable agitating and unable to focus and concentrate and is quite delusional at times.Stop clonidine and stop seroquel. Time with Patient: Less than 30
[2018-10-09 12:35] LABS: Glucose,Whole Blood 116 mg/dL (75-99)
[2018-10-09 18:04] LABS: Glucose,Whole Blood 106 mg/dL (75-99)
[2018-10-09 20:54] LABS: Glucose,Whole Blood 91 mg/dL (75-99)
[2018-10-09] MEDS ORDERED: PALIPERIDONE 6 MG TAB.ER.24 PO SCH (21:00)
[2018-10-09] MEDS: PALIPERIDONE 3 MG TAB.ER.24 PO SCH (21:03)
[2018-10-09] MEDS: traZODone HCL 50 MG TAB PO SCH (21:04)
[2018-10-10 06:50] LABS: Glucose,Whole Blood 95 mg/dL (75-99)
[2018-10-10] MEDS: INSULIN ASPART 100 UNIT/ML 1 ML 10 ML VIAL SQ SCH ×5 (07:51→22:12)
[2018-10-10] MEDS: metFORMIN 500 MG TAB PO SCH ×2 (08:27→17:54)
[2018-10-10] MEDS: SULFAMETHOX-TMP 800-160MG 1 EACH TAB PO SCH ×4 (08:27→22:33)
[2018-10-10] MEDS: NEOMYCIN-POLYMYXIN-HC OPHTH DROPS 7.5 ML BTL BOTH EYES SCH ×4 (08:31→22:33)
[2018-10-10] MEDS: CLOTRIMAZOLE/BETAMETH 1-0.05% LOTION 30 ML BTL TOPICAL SCH ×3 (08:31→22:12)
[2018-10-10] MEDS: VENLAFAXINE HCL ER 75 MG CAP PO SCH (08:31)
--- NOTE | 2018-10-10 10:01 | P.PN ---
Subjective Progress Note Date: 10/10/18 Principal diagnosis: major depressive disorder-acute psychosis I feel so exhausted and tired and fatigued I not been able to sleep and the last 2 days. The doctor I saw [facility] had raised by Seroquel to 600 mg XL her and then decreased it to 300 mg and I felt weak dizzy and fell backwards and hit my head. 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 She has been and and has 2 children. She is on Medicaid and no other support. She lives alone and struggles about living alone with minimal financial assistance. 10/05/2018: Is still remain exhausted and I would like to rest today. I encouraged patient around bed and participate in groups but she tends to isolate and hide. Discussed the adjustment in medications venlafaxine 225 mg bedtime and stop Seroquel 50 mg twice a day and start trazodone 150 mg at bedtime along with 3 mg of Invega. Objective - Vital Signs Vital signs: Vital Signs Temp 98.1 F 10/10/18 06:35 Pulse 116 H 10/10/18 06:35 Resp 18 10/10/18 06:35 BP 114/83 10/10/18 06:35 Pulse Ox 95 10/03/18 21:18 - Labs CBC & Chem 7: 10/03/18 15:16 10/03/18 15:16 Labs: Abnormal Lab Results - Last 24 Hours (Table) 10/09/18 10/09/18 Range/Units 12:30 17:58 POC Glucose (mg/dL) 116 H 106 H (75-99) mg/dL Microbiology - Last 24 Hours (Table) 10/03/18 15:16 Blood Culture - Final Blood No Growth after 144 hours Assessment and Plan Assessment: HPI: This is a 47-year-old female with history of psychiatric illness presents for mental health evaluation. Patient's states that the [place] government is out to get her, she told her family that they were planning to take her to [place] in the morning. According to her family members she has a daughter who has been admitted for psychiatric purposes in the past. And patient does have history of mental illness. Uncertain of what medication she is on. She states that she has infection, from her eyes. She is alert and oriented 3. The remainder of her comments are incoherent and nonsensical. patient presents to ED with family due to acute psychosis. patient refused to get out of vehicle, patient yelling, swearing, and states " youre not safe in your home because the [facility] is recording you while you're having sex and showing everyone Past Medical History Past Medical History: Diabetes Mellitus History of Any Multi-Drug Resistant Organisms: None Reported Past Surgical History: Section Past Psychological History: PTSD Smoking Status: Former smoker Past Alcohol Use History: None Reported Past Drug Use History: None Reported Musculoskeletal Examination - Abnormal/Involuntary Movements: [none, tremors, spasm, tics] Strength: [greater than antigravity (greater than/equal to 3/5) in all extremities, weakness:] Muscle Tone: [no impairment, dystonia, hypertonic/myoclonus, rigidity, flaccid] Gait: [grossly normal, antalgic, limping, in wheelchair, wide-based] Station: [grossly normal, unsteady, in wheelchair] Mental Status Examination - General Appearance: [ bizarre, appears older than stated age Speech/Language mute Attitude/Behavior: [guarded, irritable, withdrawn] Mood: [depressed affect, anxious, irritable, angry, fearful, hopelessness Affect: [ labile, blunted constricted Orientation: [unable to participate time, person, place situation] Thought Content: [ delusions, obsessions, phobias, other] Risk Factors: [???suicidal (ideations, plan), and/or Homicidal (ideations, plan) , other] Perception: [hallucinations (auditory, visual, tactile), other] Thought Processes: [ concrete, circumstantial, tangential Concentration/Attention Span: [ impaired] [Per observation and interview with the patient] Recent Memory: [ impaired] [0, 1, 2 or 3 out of 3 in 3 minutes] Remote Memory: [ impaired] [past events, as related history] Intelligence: [below average] [based on history, based on vocabulary, syntax, grammar, and content] Judgement: [ poor] [per patient's behavior/history of present illness] Insight: [ poor] [understanding severity of illness/history of present illness] Admitting Diagnosis: [Major depressive disorder with acute psychosis and Effexor withdrawal] Patient Strengths - Setting and pursuing goals, hopes, dreams, aspirations: [x] Resources - social, interpersonal, monetary: [x] Patient Limitations: [medication, non-compliance, pathological/unsupported environment, no interests, intellectual impairment, Initial Plan of Care: [patient admitted on involuntary basis to psychiatric unit due to her inability to communicate and function and with her acute psychosis which present which decrease a communication barrier. She will also( haloperidol 2 mg so further evaluation of patient is able to include laboratory work that medicine needs and further psychiatric care. She'll be evaluated by nursing staff, social work and recreational therapy to be integrated in a hansen milieu therapeutic environment whereby she will be staffed and a multidisciplinary team approach on a daily basis for her progress and disposition.] Estimated Length of Stay: [5 days] Initial Discharge Plan: [home, [facility], referred to therapist Prognosis: guarded] she is not participating in care at the current time Justification for Inpatient Hospitalization - [Hallucinations, delusions, agitation, anxiety, depression resulting in significant loss of functioning.] [Dangerous to self, others, or property with need for controlled environment.] [Emotional or behavioral conditions and complications requiring 24 hour medical and nursing care.] [Need for special drug therapy, or other therapeutic program requiring continuous hospitalization.] [Failure of social or occupational functioning.] [Inability to meet basic life and health needs.] [Legally mandated admission.] [ (1) Acute psychosis Current Visit: Yes Status: Acute Priority: High Code(s): F23 - BRIEF PSYCHOTIC DISORDER SNOMED Code(s): 25028434 Plan: She has severe anxiety and will stop clonidine 0.1 mg twice a day, restart her Effexor at 225 mg XL by mouth daily at bedtime, Invega 3 mg mouth daily at bedtime due to the fact that she was having difficulty with insomnia She has more of a major depressive disorder with psychosis and Effexor withdrawal than any other diagnosis. 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 Change to Invega 6 mg by mouth daily at bedtime and trazodone 150 mg by mouth daily at bedtime for depression and sleep. She remains tense and irritable agitating and unable to focus and concentrate and is quite delusional at times.Stop clonidine and stop seroquel. Time with Patient: Less than 30
[2018-10-10 12:37] LABS: Glucose,Whole Blood 139 mg/dL (75-99)
[2018-10-10 13:40] LABS: Basophils % (A) 0 %; Eosinophils # (A) 0.1 k/uL (0-0.7); Eosinophils % (A) 1 %; HCT 43.2 % (34.0-46.0); Lymphocytes # (A) 1.5 k/uL (1.0-4.8); Lymphocytes % (A) 16 %; MCH 30.2 pg (25.0-35.0); MCHC 32.3 g/dL (31.0-37.0); MCV 93.3 fL (80.0-100.0); Mean Platelet Volume 6.7; Monocytes # (A) 0.3 k/uL (0-1.0); Monocytes % (A) 4 %; Neutrophils # (A) 7.3 k/uL (1.3-7.7); Neutrophils % (A) 78 %; Platelet Count 283 k/uL (150-450); RBC 4.63 m/uL (3.80-5.40); RDW 13.9 % (11.5-15.5); WBC 9.4 k/uL (3.8-10.6)
[2018-10-10 17:53] LABS: Glucose,Whole Blood 175 mg/dL (75-99)
[2018-10-10 20:17] LABS: Glucose,Whole Blood 141 mg/dL (75-99)
[2018-10-10] MEDS: PALIPERIDONE 3 MG TAB.ER.24 PO SCH ×3 (22:00→22:34)
[2018-10-10] MEDS: traZODone HCL 50 MG TAB PO SCH ×3 (22:01→22:33)
[2018-10-11 06:43] LABS: Glucose,Whole Blood 116 mg/dL (75-99)
[2018-10-11] MEDS: INSULIN ASPART 100 UNIT/ML 1 ML 10 ML VIAL SQ SCH ×4 (08:00→20:33)
[2018-10-11] MEDS: NEOMYCIN-POLYMYXIN-HC OPHTH DROPS 7.5 ML BTL BOTH EYES SCH ×2 (08:01→08:30)
[2018-10-11] MEDS: SULFAMETHOX-TMP 800-160MG 1 EACH TAB PO SCH ×2 (08:01→08:30)
[2018-10-11] MEDS: CLOTRIMAZOLE/BETAMETH 1-0.05% LOTION 30 ML BTL TOPICAL SCH ×3 (08:01→21:21)
[2018-10-11] MEDS: VENLAFAXINE HCL ER 75 MG CAP PO SCH ×3 (08:01→10:19)
[2018-10-11] MEDS: metFORMIN 500 MG TAB PO SCH ×3 (08:06→16:59)
[2018-10-11 12:13] LABS: Glucose,Whole Blood 194 mg/dL (75-99)
--- NOTE | 2018-10-11 13:01 | P.PN ---
Subjective Progress Note Date: 10/11/18 Principal diagnosis: major depressive disorder-acute psychosis I feel so exhausted and tired and fatigued I not been able to sleep and the last 2 days. The doctor I saw [facility] had raised by Seroquel to 600 mg XL her and then decreased it to 300 mg and I felt weak dizzy and fell backwards and hit my head. 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 She has been and and has 2 children. She is on Medicaid and no other support. She lives alone and struggles about living alone with minimal financial assistance. 10/05/2018: Is still remain exhausted and I would like to rest today. I encouraged patient around bed and participate in groups but she tends to isolate and hide. Discussed the adjustment in medications venlafaxine 225 mg bedtime and stop Seroquel 50 mg twice a day and start trazodone 150 mg at bedtime along with 3 mg of Invega. Objective - Vital Signs Vital signs: Vital Signs Temp 98.1 F 10/10/18 06:35 Pulse 116 H 10/10/18 06:35 Resp 18 10/10/18 06:35 BP 114/83 10/10/18 06:35 Pulse Ox 95 10/03/18 21:18 - Labs CBC & Chem 7: 10/10/18 13:08 10/03/18 15:16 Labs: Abnormal Lab Results - Last 24 Hours (Table) 10/10/18 10/10/18 10/11/18 Range/Units 17:49 20:03 06:27 POC Glucose (mg/dL) 175 H 141 H 116 H (75-99) mg/dL 10/11/18 Range/Units 12:11 POC Glucose (mg/dL) 194 H (75-99) mg/dL Assessment and Plan Assessment: HPI: This is a 47-year-old female with history of psychiatric illness presents for mental health evaluation. Patient's states that the [place] government is out to get her, she told her family that they were planning to take her to [place] in the morning. According to her family members she has a daughter who has been admitted for psychiatric purposes in the past. And patient does have history of mental illness. Uncertain of what medication she is on. She states that she has infection, from her eyes. She is alert and oriented 3. The remainder of her comments are incoherent and nonsensical. patient presents to ED with family due to acute psychosis. patient refused to get out of vehicle, patient yelling, swearing, and states " youre not safe in your home because the [facility] [employer] is recording you while you're having sex and showing everyone Past Medical History Past Medical History: Diabetes Mellitus History of Any Multi-Drug Resistant Organisms: None Reported Past Surgical History: Section Past Psychological History: PTSD Smoking Status: Former smoker Past Alcohol Use History: None Reported Past Drug Use History: None Reported Musculoskeletal Examination - Abnormal/Involuntary Movements: [none, tremors, spasm, tics] Strength: [greater than antigravity (greater than/equal to 3/5) in all extremities, weakness:] Muscle Tone: [no impairment, dystonia, hypertonic/myoclonus, rigidity, flaccid] Gait: [grossly normal, antalgic, limping, in wheelchair, wide-based] Station: [grossly normal, unsteady, in wheelchair] Mental Status Examination - General Appearance: [ bizarre, appears older than stated age Speech/Language mute Attitude/Behavior: [guarded, irritable, withdrawn] Mood: [depressed affect, anxious, irritable, angry, fearful, hopelessness Affect: [ labile, blunted constricted Orientation: [unable to participate time, person, place situation] Thought Content: [ delusions, obsessions, phobias, other] Risk Factors: [???suicidal (ideations, plan), and/or Homicidal (ideations, plan) , other] Perception: [hallucinations (auditory, visual, tactile), other] Thought Processes: [ concrete, circumstantial, tangential Concentration/Attention Span: [ impaired] [Per observation and interview with the patient] Recent Memory: [ impaired] [0, 1, 2 or 3 out of 3 in 3 minutes] Remote Memory: [ impaired] [past events, as related history] Intelligence: [below average] [based on history, based on vocabulary, syntax, grammar, and content] Judgement: [ poor] [per patient's behavior/history of present illness] Insight: [ poor] [understanding severity of illness/history of present illness] Admitting Diagnosis: [Major depressive disorder with acute psychosis and Effexor withdrawal] Patient Strengths - Setting and pursuing goals, hopes, dreams, aspirations: [x] Resources - social, interpersonal, monetary: [x] Patient Limitations: [medication, non-compliance, pathological/unsupported environment, no interests, intellectual impairment, Initial Plan of Care: [patient admitted on involuntary basis to psychiatric unit due to her inability to communicate and function and with her acute psychosis which present which decrease a communication barrier. She will also( haloperidol 2 mg so further evaluation of patient is able to include laboratory work that medicine needs and further psychiatric care. She'll be evaluated by nursing staff, social work and recreational therapy to be integrated in a hansen milieu therapeutic environment whereby she will be staffed and a multidisciplinary team approach on a daily basis for her progress and disposition.] Estimated Length of Stay: [5 days] Initial Discharge Plan: [[place], [facility], referred to therapist Prognosis: guarded] she is not participating in care at the current time Justification for Inpatient Hospitalization - [Hallucinations, delusions, agitation, anxiety, depression resulting in significant loss of functioning.] [Dangerous to self, others, or property with need for controlled environment.] [Emotional or behavioral conditions and complications requiring 24 hour medical and nursing care.] [Need for special drug therapy, or other therapeutic program requiring continuous hospitalization.] [Failure of social or occupational functioning.] [Inability to meet basic life and health needs.] [Legally mandated admission.] [ (1) Acute psychosis Current Visit: Yes Status: Acute Priority: High Code(s): F23 - BRIEF PSYCHOTIC DISORDER SNOMED Code(s): 97989697 Plan: She has severe anxiety and will stop clonidine 0.1 mg twice a day, restart her Effexor at 225 mg XL by mouth daily at bedtime, Invega 3 mg mouth daily at bedtime due to the fact that she was having difficulty with insomnia She has more of a major depressive disorder with psychosis and Effexor withdrawal than any other diagnosis. 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 Change to Invega 6 mg by mouth daily at bedtime and trazodone 150 mg by mouth daily at bedtime for depression and sleep. She remains tense and irritable agitating and unable to focus and concentrate and is quite delusional at times.Stop clonidine and stop seroquel.she went 3 days without taking her medications and took her medication last night. She is going to court today for involuntary hospitalization. She is angry irritable and agitated. Time with Patient: Less than 30
[2018-10-11] MEDS ORDERED: FLUCONAZOLE 150 MG TAB PO STA (13:54)
[2018-10-11] MEDS ORDERED: ARTIFICIAL TEARS-HYPROMELLOSE DROPS 15 ML BTL BOTH EYES PRN (13:56)
[2018-10-11] MEDS ORDERED: TRIAMCINOLONE 0.1% CREAM 80 GM TUBE TOPICAL PRN (13:57)
--- NOTE | 2018-10-11 14:22 | P.PN ---
Subjective Progress Note Date: 10/11/18 Principal diagnosis: vaginal discharge Called to see patient regarding vaginal discharge and eye irritation. Patient seen and examined at bedside with nursing present. She complains of vaginal discharge and itching that started 2 days ago. She states she has a yeast infection everywhere. She also complains of eye irritation and that she was supposed be taking eye medication from prior to admission and follow up with an eye doctor in 2 weeks. She has a flight of ideas and tangential thinking. She has a hard time concentrating. She is obsessed with the fact that she was born with a staph infection at [facility]. She also feels that she needs IV antibiotics. She also is complaining of skin sloughing in her feet. She states she seen Dr. Bergeron told her she needed to stop smoking and she has stopped. She then talks about poison in her food and how she ate all organic at home. She is also states that she is ALLERGIC to yeast. She has multiple complaints and starts speaking of movies and doctors and home remedies. Objective - Vital Signs Vital signs: Vital Signs Temp 98.1 F 10/10/18 06:35 Pulse 116 H 10/10/18 06:35 Resp 18 10/10/18 06:35 BP 114/83 10/10/18 06:35 Pulse Ox 95 10/03/18 21:18 - Exam General: non toxic, no distress, appears at stated age Derm: warm, dry Head: atraumatic, normocephalic, symmetric Eyes: EOMI, no lid lag, anicteric sclera mild erythema of eye lip without conjunctival injection on left eye, no drainage Mouth: no lip lesion, mucus membranes moist Cardiovascular: S1S2 reg, no murmur, decreased posterior tibuial pulse b/l Lungs: CTA bilateral, no rhonchi, no rales , no accessory muscle use Abdominal: soft, nontender to palpation, no guarding, no appreciable organomegaly Ext: no gross muscle atrophy, no edema, no contractures, dusky appearance to 2 and 3 toes b/l, skin pealing and multiple callous Neuro: CN II-XI grossly intact, no focal neuro deficits Psych: Alert, oriented, appropriate affect Underwear on that reveals a white discharge consistent with vaginal yeast infection - Labs CBC & Chem 7: 10/10/18 13:08 12/11/18 15:16 Labs: Abnormal Lab Results - Last 24 Hours (Table) 10/10/18 10/10/18 10/11/18 Range/Units 17:49 20:03 06:27 POC Glucose (mg/dL) 175 H 141 H 116 H (75-99) mg/dL 10/11/18 Range/Units 12:11 POC Glucose (mg/dL) 194 H (75-99) mg/dL Assessment and Plan Assessment: Vaginal yeast infection -By mouth Diflucan 1 Peripheral arterial disease with callus formation -Lac-Hydrin cream to bilateral feet -Follow up outpatient with Dr. Burr Eye irritation - stop cortisporin as can cause eye irritation and she has completed course - start artifical tears. DM 2 - continue metformin Dermatitis - triamcilonone cream bid PRN Thank you for allowing us to participate in the care of this patient. We will follow peripherally. Do not hesitate to contact us with questions. Someone can be reached from the [facility] hospitalist group at all hours of the day at [phone].
[2018-10-11] MEDS: AMMONIUM LACTATE 12% LOTION 225 GM BTL TOPICAL SCH ×2 (14:42→21:21)
[2018-10-11 17:14] LABS: Glucose,Whole Blood 126 mg/dL (75-99)
[2018-10-11 20:32] LABS: Glucose,Whole Blood 135 mg/dL (75-99)
[2018-10-11] MEDS: traZODone HCL 50 MG TAB PO SCH (21:21)
[2018-10-11] MEDS: PALIPERIDONE 3 MG TAB.ER.24 PO SCH (21:21)
[2018-10-12] MEDS: CLOTRIMAZOLE/BETAMETH 1-0.05% LOTION 30 ML BTL TOPICAL SCH ×3 (01:00→21:09)
[2018-10-12] MEDS: AMMONIUM LACTATE 12% LOTION 225 GM BTL TOPICAL SCH ×3 (01:00→21:08)
[2018-10-12 06:42] LABS: Glucose,Whole Blood 114 mg/dL (75-99)
[2018-10-12] MEDS: INSULIN ASPART 100 UNIT/ML 1 ML 10 ML VIAL SQ SCH ×4 (07:52→21:09)
[2018-10-12] MEDS: metFORMIN 500 MG TAB PO SCH ×2 (07:52→17:35)
--- NOTE | 2018-10-12 11:54 | P.PN ---
Subjective Progress Note Date: 10/12/18 Principal diagnosis: major depressive disorder-acute psychosis I feel so exhausted and tired and fatigued I not been able to sleep and the last 2 days. The doctor I saw [facility] had raised by Seroquel to 600 mg XL her and then decreased it to 300 mg and I felt weak dizzy and fell backwards and hit my head. 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 She has been and and has 2 children. She is on Medicaid and no other support. She lives alone and struggles about living alone with minimal financial assistance. 10/05/2018: Is still remain exhausted and I would like to rest today. I encouraged patient around bed and participate in groups but she tends to isolate and hide. Discussed the adjustment in medications venlafaxine 225 mg bedtime and stop Seroquel 50 mg twice a day and start trazodone 150 mg at bedtime along with 3 mg of Invega. 10/12/2018 she started taking her medications 2 days ago but still very upset and angry. However last night she came out of her room and play cards with the other patients. Objective - Vital Signs Vital signs: Vital Signs Temp 98.1 F 10/10/18 06:35 Pulse 116 H 10/10/18 06:35 Resp 18 10/10/18 06:35 BP 114/83 10/10/18 06:35 Pulse Ox 95 10/03/18 21:18 - Labs CBC & Chem 7: 10/10/18 13:08 10/03/18 15:16 Labs: Abnormal Lab Results - Last 24 Hours (Table) 10/11/18 10/11/18 10/11/18 Range/Units 12:11 17:13 20:31 POC Glucose (mg/dL) 194 H 126 H 135 H (75-99) mg/dL 10/12/18 Range/Units 06:38 POC Glucose (mg/dL) 114 H (75-99) mg/dL Assessment and Plan Assessment: HPI: This is a 47-year-old female with history of psychiatric illness presents for mental health evaluation. Patient's states that the [place] government is out to get her, she told her family that they were planning to take her to [place] in the morning. According to her family members she has a daughter who has been admitted for psychiatric purposes in the past. And patient does have history of mental illness. Uncertain of what medication she is on. She states that she has infection, from her eyes. She is alert and oriented 3. The remainder of her comments are incoherent and nonsensical. patient presents to ED with family due to acute psychosis. patient refused to get out of vehicle, patient yelling, swearing, and states " youre not safe in your home because the [facility] [employer] is recording you while you're having sex and showing everyone Past Medical History Past Medical History: Diabetes Mellitus History of Any Multi-Drug Resistant Organisms: None Reported Past Surgical History: Section Past Psychological History: PTSD Smoking Status: Former smoker Past Alcohol Use History: None Reported Past Drug Use History: None Reported Musculoskeletal Examination - Abnormal/Involuntary Movements: [none, tremors, spasm, tics] Strength: [greater than antigravity (greater than/equal to 3/5) in all extremities, weakness:] Muscle Tone: [no impairment, dystonia, hypertonic/myoclonus, rigidity, flaccid] Gait: [grossly normal, antalgic, limping, in wheelchair, wide-based] Station: [grossly normal, unsteady, in wheelchair] Mental Status Examination - General Appearance: [ bizarre, appears older than stated age Speech/Language mute Attitude/Behavior: [guarded, irritable, withdrawn] Mood: [depressed affect, anxious, irritable, angry, fearful, hopelessness Affect: [ labile, blunted constricted Orientation: [unable to participate time, person, place situation] Thought Content: [ delusions, obsessions, phobias, other] Risk Factors: [???suicidal (ideations, plan), and/or Homicidal (ideations, plan) , other] Perception: [hallucinations (auditory, visual, tactile), other] Thought Processes: [ concrete, circumstantial, tangential Concentration/Attention Span: [ impaired] [Per observation and interview with the patient] Recent Memory: [ impaired] [0, 1, 2 or 3 out of 3 in 3 minutes] Remote Memory: [ impaired] [past events, as related history] Intelligence: [below average] [based on history, based on vocabulary, syntax, grammar, and content] Judgement: [ poor] [per patient's behavior/history of present illness] Insight: [ poor] [understanding severity of illness/history of present illness] Admitting Diagnosis: [Major depressive disorder with acute psychosis and Effexor withdrawal] Patient Strengths - Setting and pursuing goals, hopes, dreams, aspirations: [x] Resources - social, interpersonal, monetary: [x] Patient Limitations: [medication, non-compliance, pathological/unsupported environment, no interests, intellectual impairment, Initial Plan of Care: [patient admitted on involuntary basis to psychiatric unit due to her inability to communicate and function and with her acute psychosis which present which decrease a communication barrier. She will also( haloperidol 2 mg so further evaluation of patient is able to include laboratory work that medicine needs and further psychiatric care. She'll be evaluated by nursing staff, social work and recreational therapy to be integrated in a hansen milieu therapeutic environment whereby she will be staffed and a multidisciplinary team approach on a daily basis for her progress and disposition.] Estimated Length of Stay: [5 days] due to her inability to be consistent on taking her medications she is going to have a demand hearing 10/25/2018 Initial Discharge Plan: [home, [facility], referred to therapist Prognosis: guarded] she is not participating in care at the current time Justification for Inpatient Hospitalization - [Hallucinations, delusions, agitation, anxiety, depression resulting in significant loss of functioning.] [Dangerous to self, others, or property with need for controlled environment.] [Emotional or behavioral conditions and complications requiring 24 hour medical and nursing care.] [Need for special drug therapy, or other therapeutic program requiring continuous hospitalization.] [Failure of social or occupational functioning.] [Inability to meet basic life and health needs.] [Legally mandated admission.] [ (1) Acute psychosis Current Visit: Yes Status: Acute Priority: High Code(s): F23 - BRIEF PSYCHOTIC DISORDER SNOMED Code(s): 04470580 Plan: She has severe anxiety and will stop clonidine 0.1 mg twice a day, restart her Effexor at 225 mg XL by mouth daily at bedtime, Invega 3 mg mouth daily at bedtime due to the fact that she was having difficulty with insomnia She has more of a major depressive disorder with psychosis and Effexor withdrawal than any other diagnosis. 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 Change to Invega 6 mg by mouth daily at bedtime and trazodone 150 mg by mouth daily at bedtime for depression and sleep. She remains tense and irritable agitating and unable to focus and concentrate and is quite delusional at times.Stop clonidine and stop seroquel.she went 3 days without taking her medications and took her medication last night. She has command hearing on 10/25/2018 due to the fact that she sign deferral stopped taking medicines. Time with Patient: Less than 30
[2018-10-12 12:25] LABS: Glucose,Whole Blood 136 mg/dL (75-99)
[2018-10-12 17:18] LABS: Glucose,Whole Blood 119 mg/dL (75-99)
[2018-10-12 20:12] LABS: Glucose,Whole Blood 95 mg/dL (75-99)
[2018-10-12] MEDS ORDERED: PALIPERIDONE 6 MG TAB.ER.24 PO SCH (21:00)
[2018-10-12] MEDS: traZODone HCL 50 MG TAB PO SCH (21:09)
[2018-10-13 06:31] LABS: Glucose,Whole Blood 117 mg/dL (75-99)
[2018-10-13] MEDS: INSULIN ASPART 100 UNIT/ML 1 ML 10 ML VIAL SQ SCH ×4 (07:42→21:32)
[2018-10-13] MEDS: metFORMIN 500 MG TAB PO SCH ×2 (08:24→18:21)
[2018-10-13] MEDS: CLOTRIMAZOLE/BETAMETH 1-0.05% LOTION 30 ML BTL TOPICAL SCH ×2 (09:15→21:27)
[2018-10-13] MEDS: AMMONIUM LACTATE 12% LOTION 225 GM BTL TOPICAL SCH ×2 (09:15→21:27)
--- NOTE | 2018-10-13 11:37 | P.PN ---
Subjective Progress Note Date: 10/13/18 Principal diagnosis: major depressive disorder-acute psychosis I feel so exhausted and tired and fatigued I not been able to sleep and the last 2 days. The doctor I saw [facility] had raised by Seroquel to 600 mg XL her and then decreased it to 300 mg and I felt weak dizzy and fell backwards and hit my head. 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 She has been and and has 2 children. She is on Medicaid and no other support. She lives alone and struggles about living alone with minimal financial assistance. 10/05/2018: Is still remain exhausted and I would like to rest today. I encouraged patient around bed and participate in groups but she tends to isolate and hide. Discussed the adjustment in medications venlafaxine 225 mg bedtime and stop Seroquel 50 mg twice a day and start trazodone 150 mg at bedtime along with 3 mg of Invega. 10/12/2018 she started taking her medications 2 days ago but still very upset and angry. However last night she came out of her room and play cards with the other patients. 10/13/2018 she has continued take her medications but has multiple somatic complaints and is less likely to be irritable and agitated. She is isolated to her room most of the time. She has feet complaints and circulation problems which has been addressed. She still complains of mucous in her nose and throat. No thoughts of suicide or homicide today. Objective - Vital Signs Vital signs: Vital Signs Temp 99.1 F 10/13/18 06:44 Pulse 126 H 10/13/18 06:44 Resp 18 10/13/18 06:44 BP 123/61 10/13/18 06:44 Pulse Ox 95 10/03/18 21:18 - Labs CBC & Chem 7: 10/10/18 13:08 10/03/18 15:16 Labs: Abnormal Lab Results - Last 24 Hours (Table) 10/12/18 10/12/18 10/13/18 Range/Units 12:23 17:16 06:29 POC Glucose (mg/dL) 136 H 119 H 117 H (75-99) mg/dL Assessment and Plan Assessment: HPI: This is a 47-year-old female with history of psychiatric illness presents for mental health evaluation. Patient's states that the [place] [employer] is out to get her, she told her family that they were planning to take her to [place] in the morning. According to her family members she has a daughter who has been admitted for psychiatric purposes in the past. And patient does have history of mental illness. Uncertain of what medication she is on. She states that she has infection, from her eyes. She is alert and oriented 3. The remainder of her comments are incoherent and nonsensical. patient presents to ED with family due to acute psychosis. patient refused to get out of vehicle, patient yelling, swearing, and states " youre not safe in your home because the [facility] is recording you while you're having sex and showing everyone Past Medical History Past Medical History: Diabetes Mellitus History of Any Multi-Drug Resistant Organisms: None Reported Past Surgical History: Section Past Psychological History: PTSD Smoking Status: Former smoker Past Alcohol Use History: None Reported Past Drug Use History: None Reported Musculoskeletal Examination - Abnormal/Involuntary Movements: [none, tremors, spasm, tics] Strength: [greater than antigravity (greater than/equal to 3/5) in all extremities, weakness:] Muscle Tone: [no impairment, dystonia, hypertonic/myoclonus, rigidity, flaccid] Gait: [grossly normal, antalgic, limping, in wheelchair, wide-based] Station: [grossly normal, unsteady, in wheelchair] Mental Status Examination - General Appearance: [ bizarre, appears older than stated age Speech/Language mute Attitude/Behavior: [guarded, irritable, withdrawn] Mood: [depressed affect, anxious, irritable, angry, fearful, hopelessness Affect: [ labile, blunted constricted Orientation: [unable to participate time, person, place situation] Thought Content: [ delusions, obsessions, phobias, other] Risk Factors: [???suicidal (ideations, plan), and/or Homicidal (ideations, plan) , other] Perception: [hallucinations (auditory, visual, tactile), other] Thought Processes: [ concrete, circumstantial, tangential Concentration/Attention Span: [ impaired] [Per observation and interview with the patient] Recent Memory: [ impaired] [0, 1, 2 or 3 out of 3 in 3 minutes] Remote Memory: [ impaired] [past events, as related history] Intelligence: [below average] [based on history, based on vocabulary, syntax, grammar, and content] Judgement: [ poor] [per patient's behavior/history of present illness] Insight: [ poor] [understanding severity of illness/history of present illness] Admitting Diagnosis: [Major depressive disorder with acute psychosis and Effexor withdrawal] Patient Strengths - Setting and pursuing goals, hopes, dreams, aspirations: [x] Resources - social, interpersonal, monetary: [x] Patient Limitations: [medication, non-compliance, pathological/unsupported environment, no interests, intellectual impairment, Initial Plan of Care: [patient admitted on involuntary basis to psychiatric unit due to her inability to communicate and function and with her acute psychosis which present which decrease a communication barrier. She will also( haloperidol 2 mg so further evaluation of patient is able to include laboratory work that medicine needs and further psychiatric care. She'll be evaluated by nursing staff, social work and recreational therapy to be integrated in a hansen milieu therapeutic environment whereby she will be staffed and a multidisciplinary team approach on a daily basis for her progress and disposition.] Estimated Length of Stay: [4 days] due to her inability to be consistent on taking her medications she is going to have a demand hearing 10/25/2018 Initial Discharge Plan: [home, [facility], referred to therapist Prognosis: guarded] she is participating in care at the current time Justification for Inpatient Hospitalization - [Hallucinations, delusions, agitation, anxiety, depression resulting in significant loss of functioning.] [Dangerous to self, others, or property with need for controlled environment.] [Emotional or behavioral conditions and complications requiring 24 hour medical and nursing care.] [Need for special drug therapy, or other therapeutic program requiring continuous hospitalization.] [Failure of social or occupational functioning.] [Inability to meet basic life and health needs.] [Legally mandated admission.] [ (1) Acute psychosis Current Visit: Yes Status: Acute Priority: High Code(s): F23 - BRIEF PSYCHOTIC DISORDER SNOMED Code(s): 78877332 Plan: She has severe anxiety and will stop clonidine 0.1 mg twice a day, restart her Effexor at 225 mg XL by mouth daily at bedtime, Invega 3 mg mouth daily at bedtime due to the fact that she was having difficulty with insomnia She has more of a major depressive disorder with psychosis and Effexor withdrawal than any other diagnosis. 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 Change to Invega 9 mg by mouth daily at bedtime and trazodone 150 mg by mouth daily at bedtime for depression and sleep. She remains tense and irritable agitating and unable to focus and concentrate and is quite delusional at times.Stop clonidine and stop seroquel.she went 3 days without taking her medications and took her medication last night. She has command hearing on 10/25/2018 due to the fact that she sign deferral stopped taking medicines. Time with Patient: Less than 30
[2018-10-13 20:35] LABS: Glucose,Whole Blood 160 mg/dL (75-99)
[2018-10-13] MEDS: traZODone HCL 50 MG TAB PO SCH (21:27)
[2018-10-13] MEDS: PALIPERIDONE 3 MG TAB.ER.24 PO SCH (21:28)
[2018-10-14 06:56] LABS: Glucose,Whole Blood 123 mg/dL (75-99)
[2018-10-14] MEDS: INSULIN ASPART 100 UNIT/ML 1 ML 10 ML VIAL SQ SCH ×4 (08:15→21:10)
[2018-10-14] MEDS: VENLAFAXINE HCL ER 75 MG CAP PO SCH (09:30)
[2018-10-14] MEDS: metFORMIN 500 MG TAB PO SCH ×2 (09:30→18:31)
[2018-10-14] MEDS: AMMONIUM LACTATE 12% LOTION 225 GM BTL TOPICAL SCH ×2 (09:30→21:56)
[2018-10-14] MEDS: CLOTRIMAZOLE/BETAMETH 1-0.05% LOTION 30 ML BTL TOPICAL SCH ×2 (09:30→21:56)
[2018-10-14 12:31] LABS: Glucose,Whole Blood 142 mg/dL (75-99)
--- NOTE | 2018-10-14 18:19 | P.PN ---
Subjective Progress Note Date: 10/14/18 The patient was seen and examined in the [facility]. The patient had tangential thought process thereby history taking was difficult. She endorsed a chronic sinus congestion but otherwise denied any active complaints. 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 She otherwise denied fever, chills, headache, dizziness, nausea, or vomiting. Objective - Vital Signs Vital signs: Vital Signs Temp 99.1 F 10/13/18 06:44 Pulse 126 H 10/13/18 06:44 Resp 18 10/13/18 06:44 BP 123/61 10/13/18 06:44 Pulse Ox 95 10/03/18 21:18 - Exam General: Non-toxic, in no acute distress, appears stated age HEENT: NC/AT, anicteric sclerae, moist conjunctiva, no lid-lag, PERRLA, nasal mucosa normal, no facial tendernes Cardiovascular: S1/S2 wnl, no murmurs, rubs, or gallops Lungs: Clear to auscultation, normal respiratory effort, no accessory muscle use Abdominal: Soft, nontender, non-distended, no guarding, rebound, or rigidity Skin: Warm, dry Extremities: No edema or contractures Psychiatric: Alert and oriented to person, place and time, tangential thought process Neuro: CN II-XII grossly intact, Strength 5/5 in all 4 extremities, Speech intact, Sensation to light touch grossly intact throughout - Labs CBC & Chem 7: 10/10/18 13:08 10/03/18 15:16 Labs: Abnormal Lab Results - Last 24 Hours (Table) 10/13/18 10/14/18 10/14/18 Range/Units 20:19 06:26 12:28 POC Glucose (mg/dL) 160 H 123 H 142 H (75-99) mg/dL Assessment and Plan Plan: Yeast infection -C/w antifungal therapy to complete course DM -C/w Metformin PAD w/ calluses -Lac hydrin cream Dermatitis -Triamcinolone ointment Thank you for allowing us to participate in the care of this patient. We will follow peripherally. Do not hesitate to contact us with questions. Someone can be reached from the [facility] hospitalist group at all hours of the day at [phone].
--- NOTE | 2018-10-14 19:20 | P.PN ---
Progress Note - Text Progress Note Date: 10/14/18 Found her still depressed and down. Reports feeling very tired due to medications. She feels shaky in her body. Her sleep has been improving. MSE : She is alert, awake and oriented in all spheres. Irritable and anxious. Fair eye contact. Speech soft tone. Mood irritable and depressed with congruent affect. Denies any suicidal or homicidal ideation. Paranoid delusional. Has no auditory/Visual hallucinations. Insight and judgment impaired. Major Depression with psychoses Will continue to adjust medications accordingly
[2018-10-14 20:20] LABS: Glucose,Whole Blood 108 mg/dL (75-99)
[2018-10-14] MEDS: PALIPERIDONE 3 MG TAB.ER.24 PO SCH (21:57)
[2018-10-14] MEDS: traZODone HCL 50 MG TAB PO SCH (21:57)
[2018-10-15 06:14] LABS: Glucose,Whole Blood 101 mg/dL (75-99)
[2018-10-15] MEDS: INSULIN ASPART 100 UNIT/ML 1 ML 10 ML VIAL SQ SCH ×4 (06:45→20:20)
[2018-10-15] MEDS: metFORMIN 500 MG TAB PO SCH ×2 (06:55→17:31)
[2018-10-15 06:56] LABS: Glucose,Whole Blood 117 mg/dL (75-99)
[2018-10-15] MEDS: VENLAFAXINE HCL ER 75 MG CAP PO SCH (09:21)
[2018-10-15] MEDS: AMMONIUM LACTATE 12% LOTION 225 GM BTL TOPICAL SCH ×2 (09:22→21:33)
[2018-10-15] MEDS: CLOTRIMAZOLE/BETAMETH 1-0.05% LOTION 30 ML BTL TOPICAL SCH ×2 (09:23→21:34)
--- NOTE | 2018-10-15 11:59 | P.PN ---
Progress Note - Text Progress Note Date: 10/15/18 Found her still depressed and down. Reports feeling very tired due to medications. She feels shaky in her body. Her sleep has been improving. MSE : She is alert, awake and oriented in all spheres. Irritable and anxious. Fair eye contact. Speech soft tone. Mood irritable and depressed with congruent affect. Denies any suicidal or homicidal ideation. Paranoid delusional. Has no auditory/Visual hallucinations. Insight and judgment impaired. Major Depression with psychoses Will continue to adjust medications accordingly
[2018-10-15 17:37] LABS: Glucose,Whole Blood 83 mg/dL (75-99)
[2018-10-15 20:17] LABS: Glucose,Whole Blood 101 mg/dL (75-99)
[2018-10-15] MEDS: PALIPERIDONE 3 MG TAB.ER.24 PO SCH (21:23)
[2018-10-15] MEDS: traZODone HCL 50 MG TAB PO SCH (21:23)
[2018-10-16 06:24] LABS: Glucose,Whole Blood 89 mg/dL (75-99)
[2018-10-16] MEDS: INSULIN ASPART 100 UNIT/ML 1 ML 10 ML VIAL SQ SCH ×4 (07:56→20:20)
[2018-10-16] MEDS: VENLAFAXINE HCL ER 75 MG CAP PO SCH ×2 (08:07→20:21)
[2018-10-16] MEDS: metFORMIN 500 MG TAB PO SCH ×2 (08:08→16:58)
[2018-10-16] MEDS: CLOTRIMAZOLE/BETAMETH 1-0.05% LOTION 30 ML BTL TOPICAL SCH ×2 (08:08→20:20)
[2018-10-16] MEDS: AMMONIUM LACTATE 12% LOTION 225 GM BTL TOPICAL SCH ×2 (08:08→20:20)
[2018-10-16 16:57] LABS: Glucose,Whole Blood 92 mg/dL (75-99)
--- NOTE | 2018-10-16 17:04 | P.PN ---
Progress Note - Text Progress Note Date: 10/16/18 Found her still depressed and down. Reports feeling very tired due to medications. She feels shaky in her body. Her sleep has been improving. MSE : She is alert, awake and oriented in all spheres. Irritable and anxious. Fair eye contact. Speech soft tone. Mood irritable and depressed with congruent affect. Denies any suicidal or homicidal ideation. Paranoid delusional. Has no auditory/Visual hallucinations. Insight and judgment impaired. Major Depression with psychoses Will move Effexor XR to bed time and continue to adjust medications accordingly
[2018-10-16 19:58] LABS: Glucose,Whole Blood 118 mg/dL (75-99)
[2018-10-16] MEDS: PALIPERIDONE 3 MG TAB.ER.24 PO SCH (20:19)
[2018-10-16] MEDS: traZODone HCL 50 MG TAB PO SCH (20:19)
[2018-10-17 07:10] LABS: Glucose,Whole Blood 113 mg/dL (75-99)
[2018-10-17] MEDS: INSULIN ASPART 100 UNIT/ML 1 ML 10 ML VIAL SQ SCH ×4 (08:14→21:31)
[2018-10-17] MEDS: metFORMIN 500 MG TAB PO SCH ×2 (08:20→16:38)
[2018-10-17] MEDS: AMMONIUM LACTATE 12% LOTION 225 GM BTL TOPICAL SCH ×2 (08:35→21:41)
[2018-10-17] MEDS: CLOTRIMAZOLE/BETAMETH 1-0.05% LOTION 30 ML BTL TOPICAL SCH ×2 (08:35→21:42)
--- NOTE | 2018-10-17 11:57 | P.PN ---
Progress Note - Text Progress Note Date: 10/17/18 Found her some what better mood albert. She is more alert as we moved effexor to bed time. Her sleep has been improving. MSE : She is alert, awake and oriented in all spheres. Irritable and anxious. Fair eye contact. Speech soft tone. Mood depressed with congruent affect. Denies any suicidal or homicidal ideation. Paranoid delusional. Has no auditory/ Visual hallucinations. Insight and judgment impaired. Major Depression with psychoses Will continue to adjust medications accordingl
[2018-10-17 12:41] LABS: Glucose,Whole Blood 103 mg/dL (75-99)
[2018-10-17 14:17] LABS: Glucose,Whole Blood 192 mg/dL (75-99)
[2018-10-17 17:23] LABS: Glucose,Whole Blood 91 mg/dL (75-99)
[2018-10-17 20:24] LABS: Glucose,Whole Blood 154 mg/dL (75-99)
[2018-10-17 21:33] LABS: Glucose,Whole Blood 113 mg/dL (75-99)
[2018-10-17] MEDS: traZODone HCL 50 MG TAB PO SCH (21:34)
[2018-10-17] MEDS: PALIPERIDONE 3 MG TAB.ER.24 PO SCH (21:34)
[2018-10-17] MEDS: VENLAFAXINE HCL ER 75 MG CAP PO SCH (21:35)
[2018-10-18 06:36] LABS: Glucose,Whole Blood 101 mg/dL (75-99)
[2018-10-18] MEDS: INSULIN ASPART 100 UNIT/ML 1 ML 10 ML VIAL SQ SCH ×4 (08:05→20:21)
[2018-10-18] MEDS: metFORMIN 500 MG TAB PO SCH ×2 (09:23→17:49)
[2018-10-18] MEDS: CLOTRIMAZOLE/BETAMETH 1-0.05% LOTION 30 ML BTL TOPICAL SCH ×2 (09:27→20:28)
[2018-10-18] MEDS: AMMONIUM LACTATE 12% LOTION 225 GM BTL TOPICAL SCH ×2 (09:27→20:28)
--- NOTE | 2018-10-18 09:50 | P.PN ---
Subjective Progress Note Date: 10/18/18 Principal diagnosis: major depressive disorder-acute psychosis 10/05/2018: Is still remain exhausted and I would like to rest today. I encouraged patient around bed and participate in groups but she tends to isolate and hide. Discussed the adjustment in medications venlafaxine 225 mg bedtime and stop Seroquel 50 mg twice a day and start trazodone 150 mg at bedtime along with 3 mg of Invega. 10/12/2018 she started taking her medications 2 days ago but still very upset and angry. However last night she came out of her room and play cards with the other patients. 10/13/2018 she has continued take her medications but has multiple somatic complaints and is less likely to be irritable and agitated. She is isolated to her room most of the time. She has feet complaints and circulation problems which has been addressed. She still complains of mucous in her nose and throat. No thoughts of suicide or homicide today. 10/18/2018: She was lying in bed today was much more bright compliant in regards to medication and was questioning why she was getting 225 mg Effexor twice a day and was resistant the nurses and taking it twice a day. She displays no suicidal homicidal ideation. She does not appear to responding to internal stimuli and denies auditory or visual hallucinations. Objective - Vital Signs Vital signs: Vital Signs Temp 97.8 F 10/18/18 03:44 Pulse 110 H 10/18/18 03:44 Resp 14 10/18/18 03:44 BP 118/70 10/18/18 03:44 Pulse Ox 95 10/03/18 21:18 - Labs CBC & Chem 7: 10/10/18 13:08 10/03/18 15:16 Labs: Abnormal Lab Results - Last 24 Hours (Table) 10/17/18 10/17/18 10/17/18 Range/Units 12:36 14:14 20:21 POC Glucose (mg/dL) 103 H 192 H 154 H (75-99) mg/dL 10/17/18 10/18/18 Range/Units 21:29 06:27 POC Glucose (mg/dL) 113 H 101 H (75-99) mg/dL Assessment and Plan Assessment: HPI: This is a 47-year-old female with history of psychiatric illness presents for mental health evaluation. Patient's states that the [facility] is out to get her, she told her family that they were planning to take her to [place] in the morning. According to her family members she has a daughter who has been admitted for psychiatric purposes in the past. And patient does have history of mental illness. Uncertain of what medication she is on. She states that she has infection, from her eyes. She is alert and oriented 3. The remainder of her comments are incoherent and nonsensical. patient presents to ED with family due to acute psychosis. patient refused to get out of vehicle, patient yelling, swearing, and states " youre not safe in your home because the [facility] is recording you while you're having sex and showing everyone Past Medical History Past Medical History: Diabetes Mellitus History of Any Multi-Drug Resistant Organisms: None Reported Past Surgical History: Section Past Psychological History: PTSD Smoking Status: Former smoker Past Alcohol Use History: None Reported Past Drug Use History: None Reported Musculoskeletal Examination - Abnormal/Involuntary Movements: [none, tremors, spasm, tics] Strength: [greater than antigravity (greater than/equal to 3/5) in all extremities, weakness:] Muscle Tone: [no impairment, dystonia, hypertonic/myoclonus, rigidity, flaccid] Gait: [grossly normal, antalgic, limping, in wheelchair, wide-based] Station: [grossly normal, unsteady, in wheelchair] Mental Status Examination - General Appearance: [ bizarre, appears older than stated age Speech/Language mute Attitude/Behavior: [guarded, irritable, withdrawn] Mood: [depressed affect, anxious, irritable, angry, fearful, hopelessness Affect: [ labile, blunted constricted Orientation: [unable to participate time, person, place situation] Thought Content: [ delusions, obsessions, phobias, other] Risk Factors: [???suicidal (ideations, plan), and/or Homicidal (ideations, plan) , other] Perception: [hallucinations (auditory, visual, tactile), other] Thought Processes: [ concrete, circumstantial, tangential Concentration/Attention Span: [ impaired] [Per observation and interview with the patient] Recent Memory: [ impaired] [0, 1, 2 or 3 out of 3 in 3 minutes] Remote Memory: [ impaired] [past events, as related history] Intelligence: [below average] [based on history, based on vocabulary, syntax, grammar, and content] Judgement: [ poor] [per patient's behavior/history of present illness] Insight: [ poor] [understanding severity of illness/history of present illness] Admitting Diagnosis: [Major depressive disorder with acute psychosis and Effexor withdrawal] Patient Strengths - Setting and pursuing goals, hopes, dreams, aspirations: [x] Resources - social, interpersonal, monetary: [x] Patient Limitations: [medication, non-compliance, pathological/unsupported environment, no interests, intellectual impairment, Initial Plan of Care: [patient admitted on involuntary basis to psychiatric unit due to her inability to communicate and function and with her acute psychosis which present which decrease a communication barrier. She will also( haloperidol 2 mg so further evaluation of patient is able to include laboratory work that medicine needs and further psychiatric care. She'll be evaluated by nursing staff, social work and recreational therapy to be integrated in a hansen milieu therapeutic environment whereby she will be staffed and a multidisciplinary team approach on a daily basis for her progress and disposition.] Estimated Length of Stay: [4 days] due to her inability to be consistent on taking her medications she is going to have a demand hearing 10/25/2018 Initial Discharge Plan: [home, [facility], referred to therapist Prognosis: guarded] she is participating in care at the current time Justification for Inpatient Hospitalization - [anxiety, depression resulting in significant loss of functioning.] [Emotional or behavioral conditions and complications requiring 24 hour medical and nursing care.] [Need for special drug therapy, or other therapeutic program requiring continuous hospitalization.] [Legally mandated admission.] [ (1) Acute psychosis Current Visit: Yes Status: Acute Priority: High Code(s): F23 - BRIEF PSYCHOTIC DISORDER SNOMED Code(s): 40427023 Plan: She has severe anxiety and will stop clonidine 0.1 mg twice a day, restart her Effexor at 225 mg XL by mouth daily at bedtime, Invega 3 mg mouth daily at bedtime due to the fact that she was having difficulty with insomnia She has more of a major depressive disorder with psychosis and Effexor withdrawal than any other diagnosis. 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 Change to Invega 9 mg by mouth daily at bedtime and trazodone 150 mg by mouth daily at bedtime for depression and sleep. She is less tense and irritable agitating and able to focus and concentrate and is not delusional at times.Stop clonidine and stop seroquel.she went 3 days without taking her medications and took her medication last night. We'll discuss with client and in team today about converting her to Invega 234 IM injection. She has command hearing on 10/25/2018 due to the fact that she sign deferral stopped taking medicines. Time with Patient: Less than 30
[2018-10-18 12:51] LABS: Glucose,Whole Blood 100 mg/dL (75-99)
[2018-10-18 17:44] LABS: Glucose,Whole Blood 86 mg/dL (75-99)
[2018-10-18 20:24] LABS: Glucose,Whole Blood 111 mg/dL (75-99)
[2018-10-18] MEDS: PALIPERIDONE 3 MG TAB.ER.24 PO SCH (20:28)
[2018-10-18] MEDS: traZODone HCL 50 MG TAB PO SCH (20:30)
[2018-10-18] MEDS: VENLAFAXINE HCL ER 75 MG CAP PO SCH (20:32)
[2018-10-19 06:37] LABS: Glucose,Whole Blood 95 mg/dL (75-99)
[2018-10-19] MEDS: INSULIN ASPART 100 UNIT/ML 1 ML 10 ML VIAL SQ SCH ×4 (07:32→20:20)
[2018-10-19] MEDS: metFORMIN 500 MG TAB PO SCH ×2 (08:30→17:55)
[2018-10-19] MEDS: AMMONIUM LACTATE 12% LOTION 225 GM BTL TOPICAL SCH ×2 (08:31→20:49)
[2018-10-19] MEDS: CLOTRIMAZOLE/BETAMETH 1-0.05% LOTION 30 ML BTL TOPICAL SCH ×2 (08:31→20:49)
[2018-10-19] MEDS ORDERED: PALIPERIDONE IM 234 MG/1.5 ML SYG IM STA (12:37)
--- NOTE | 2018-10-19 12:39 | P.PN ---
Subjective Progress Note Date: 10/19/18 Principal diagnosis: major depressive disorder-acute psychosis 10/05/2018: Is still remain exhausted and I would like to rest today. I encouraged patient around bed and participate in groups but she tends to isolate and hide. Discussed the adjustment in medications venlafaxine 225 mg bedtime and stop Seroquel 50 mg twice a day and start trazodone 150 mg at bedtime along with 3 mg of Invega. 10/12/2018 she started taking her medications 2 days ago but still very upset and angry. However last night she came out of her room and play cards with the other patients. 10/13/2018 she has continued take her medications but has multiple somatic complaints and is less likely to be irritable and agitated. She is isolated to her room most of the time. She has feet complaints and circulation problems which has been addressed. She still complains of mucous in her nose and throat. No thoughts of suicide or homicide today. 10/18/2018: She was lying in bed today was much more bright compliant in regards to medication and was questioning why she was getting 225 mg Effexor twice a day and was resistant the nurses and taking it twice a day. She displays no suicidal homicidal ideation. She does not appear to responding to internal stimuli and denies auditory or visual hallucinations. Objective - Vital Signs Vital signs: Vital Signs Temp 98.1 F 10/19/18 06:33 Pulse 110 H 10/19/18 06:33 Resp 18 10/19/18 06:33 BP 110/63 10/19/18 06:33 Pulse Ox 95 10/03/18 21:18 Intake & Output 10/18/18 10/19/18 10/19/18 18:59 06:59 18:59 Weight 80.5 kg - Labs CBC & Chem 7: 10/10/18 13:08 10/03/18 15:16 Labs: Abnormal Lab Results - Last 24 Hours (Table) 10/18/18 10/18/18 Range/Units 12:38 19:53 POC Glucose (mg/dL) 100 H 111 H (75-99) mg/dL Assessment and Plan Assessment: HPI: This is a 47-year-old female with history of psychiatric illness presents for mental health evaluation. Patient's states that the [employer] is out to get her, she told her family that they were planning to take her to [place] in the morning. According to her family members she has a daughter who has been admitted for psychiatric purposes in the past. And patient does have history of mental illness. Uncertain of what medication she is on. She states that she has infection, from her eyes. She is alert and oriented 3. The remainder of her comments are incoherent and nonsensical. patient presents to ED with family due to acute psychosis. patient refused to get out of vehicle, patient yelling, swearing, and states " youre not safe in your home because the [facility] [employer] is recording you while you're having sex and showing everyone Past Medical History Past Medical History: Diabetes Mellitus History of Any Multi-Drug Resistant Organisms: None Reported Past Surgical History: Section Past Psychological History: PTSD Smoking Status: Former smoker Past Alcohol Use History: None Reported Past Drug Use History: None Reported Musculoskeletal Examination - Abnormal/Involuntary Movements: [none, tremors, spasm, tics] Strength: [greater than antigravity (greater than/equal to 3/5) in all extremities, weakness:] Muscle Tone: [no impairment, dystonia, hypertonic/myoclonus, rigidity, flaccid] Gait: [grossly normal, antalgic, limping, in wheelchair, wide-based] Station: [grossly normal, unsteady, in wheelchair] Mental Status Examination - General Appearance: [ cooperative, appears older than stated age Speech/Language mute Attitude/Behavior: [guarded, withdrawn] Mood: [depressed affect, anxious, irritable, angry, fearful, hopelessness Affect: [ labile, blunted constricted Orientation: [unable to participate time, person, place situation] Thought Content: [ delusions, obsessions, phobias, other] Risk Factors: [???suicidal (ideations, plan), and/or Homicidal (ideations, plan) , other] Perception: [hallucinations (auditory, visual, tactile), other] Thought Processes: [ concrete, circumstantial, tangential Concentration/Attention Span: [ impaired] [Per observation and interview with the patient] Recent Memory: [ impaired] [0, 1, 2 or 3 out of 3 in 3 minutes] Remote Memory: [ impaired] [past events, as related history] Intelligence: [avverage] [based on history, based on vocabulary, syntax, grammar , and content] Judgement: [ fair] [per patient's behavior/history of present illness] Insight: [ fair] [understanding severity of illness/history of present illness] Admitting Diagnosis: [Major depressive disorder with acute psychosis and Effexor withdrawal] Patient Strengths - Setting and pursuing goals, hopes, dreams, aspirations: [x] Resources - social, interpersonal, monetary: [x] Patient Limitations: [medication, non-compliance, pathological/unsupported environment, no interests, intellectual impairment, Initial Plan of Care: [patient admitted on involuntary basis to psychiatric unit due to her inability to communicate and function and with her acute psychosis which present which decrease a communication barrier. She'll be evaluated by nursing staff, social work and recreational therapy to be integrated in a hansen milieu therapeutic environment whereby she will be staffed and a multidisciplinary team approach on a daily basis for her progress and disposition.] Estimated Length of Stay: [4 days] due to her inability to be consistent on taking her medications she is going to have a demand hearing 10/25/2018 Initial Discharge Plan: [[place], [facility], referred to therapist Prognosis: guarded] she is participating in care at the current time Justification for Inpatient Hospitalization - [anxiety, depression resulting in significant loss of functioning.] [Emotional or behavioral conditions and complications requiring 24 hour medical and nursing care.] [Need for special drug therapy, or other therapeutic program requiring continuous hospitalization.] [Legally mandated admission.] [ (1) Acute psychosis Current Visit: Yes Status: Acute Priority: High Code(s): F23 - BRIEF PSYCHOTIC DISORDER SNOMED Code(s): 42356959 Plan: She has severe anxiety and will stop clonidine 0.1 mg twice a day, restart her Effexor at 225 mg XL by mouth daily at bedtime, Invega 3 mg mouth daily at bedtime due to the fact that she was having difficulty with insomnia She has more of a major depressive disorder with psychosis and Effexor withdrawal than any other diagnosis. 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 Change to Invega 9 mg by mouth daily at bedtime and trazodone 150 mg by mouth daily at bedtime for depression and sleep. She is less tense and irritable agitating and able to focus and concentrate and is not delusional at times.Stop clonidine and stop seroquel.she went 3 days without taking her medications and took her medication last night. We'll discuss with client and in team 10/19/2018 about converting her to Invega 234 IM injection. She has command hearing on 10/25/2018 due to the fact that she sign deferral stopped taking medicines. We talked about diet today and she is willing to try a vegan diet. She is sensitive to yeast and other refined food. I also restarted Bactrim double strength once a day more for palliative than for curative. Time with Patient: Greater than 30
[2018-10-19 12:53] LABS: Glucose,Whole Blood 97 mg/dL (75-99)
[2018-10-19 17:48] LABS: Glucose,Whole Blood 158 mg/dL (75-99)
[2018-10-19 20:34] LABS: Glucose,Whole Blood 113 mg/dL (75-99)
[2018-10-19] MEDS: traZODone HCL 50 MG TAB PO SCH (20:49)
[2018-10-19] MEDS: VENLAFAXINE HCL ER 75 MG CAP PO SCH (20:49)
[2018-10-20 04:42] LABS: Glucose,Whole Blood 125 mg/dL (75-99)
[2018-10-20] MEDS: INSULIN ASPART 100 UNIT/ML 1 ML 10 ML VIAL SQ SCH ×4 (07:33→20:10)
[2018-10-20] MEDS: AMMONIUM LACTATE 12% LOTION 225 GM BTL TOPICAL SCH ×2 (08:50→20:10)
[2018-10-20] MEDS: SULFAMETHOX-TMP 800-160MG 1 EACH TAB PO SCH (08:50)
[2018-10-20] MEDS: CLOTRIMAZOLE/BETAMETH 1-0.05% LOTION 30 ML BTL TOPICAL SCH ×2 (08:50→20:10)
[2018-10-20] MEDS: metFORMIN 500 MG TAB PO SCH ×2 (08:50→17:00)
--- NOTE | 2018-10-20 09:21 | P.PN ---
Subjective Progress Note Date: 10/20/18 Principal diagnosis: major depressive disorder-acute psychosis 10/05/2018: Is still remain exhausted and I would like to rest today. I encouraged patient around bed and participate in groups but she tends to isolate and hide. Discussed the adjustment in medications venlafaxine 225 mg bedtime and stop Seroquel 50 mg twice a day and start trazodone 150 mg at bedtime along with 3 mg of Invega. 10/12/2018 she started taking her medications 2 days ago but still very upset and angry. However last night she came out of her room and play cards with the other patients. 10/13/2018 she has continued take her medications but has multiple somatic complaints and is less likely to be irritable and agitated. She is isolated to her room most of the time. She has feet complaints and circulation problems which has been addressed. She still complains of mucous in her nose and throat. No thoughts of suicide or homicide today. 10/18/2018: She was lying in bed today was much more bright compliant in regards to medication and was questioning why she was getting 225 mg Effexor twice a day and was resistant the nurses and taking it twice a day. She displays no suicidal homicidal ideation. She does not appear to responding to internal stimuli and denies auditory or visual hallucinations. Next 10/20/2018; patient found lying in bed no chief complaint today of the fact she did not get a begin meal she received scrambled eggs awaiting court hearing. Objective - Vital Signs Vital signs: Vital Signs Temp 98.0 F 10/20/18 04:40 Pulse 115 H 10/20/18 04:40 Resp 16 10/20/18 04:40 BP 114/73 10/20/18 04:40 Pulse Ox 95 10/03/18 21:18 - Labs CBC & Chem 7: 10/10/18 13:08 10/03/18 15:16 Labs: Abnormal Lab Results - Last 24 Hours (Table) 10/19/18 10/19/18 10/20/18 Range/Units 17:46 20:19 04:38 POC Glucose (mg/dL) 158 H 113 H 125 H (75-99) mg/dL Assessment and Plan Assessment: HPI: This is a 47-year-old female with history of psychiatric illness presents for mental health evaluation. Patient's states that the [employer] is out to get her, she told her family that they were planning to take her to [place] in the morning. According to her family members she has a daughter who has been admitted for psychiatric purposes in the past. And patient does have history of mental illness. Uncertain of what medication she is on. She states that she has infection, from her eyes. She is alert and oriented 3. The remainder of her comments are incoherent and nonsensical. patient presents to ED with family due to acute psychosis. patient refused to get out of vehicle, patient yelling, swearing, and states " youre not safe in your home because the [facility] is recording you while you're having sex and showing everyone Past Medical History Past Medical History: Diabetes Mellitus History of Any Multi-Drug Resistant Organisms: None Reported Past Surgical History: Section Past Psychological History: PTSD Smoking Status: Former smoker Past Alcohol Use History: None Reported Past Drug Use History: None Reported Musculoskeletal Examination - Abnormal/Involuntary Movements: [none, tremors, spasm, tics] Strength: [greater than antigravity (greater than/equal to 3/5) in all extremities, weakness:] Muscle Tone: [no impairment, dystonia, hypertonic/myoclonus, rigidity, flaccid] Gait: [grossly normal, antalgic, limping, in wheelchair, wide-based] Station: [grossly normal, unsteady, in wheelchair] Mental Status Examination - General Appearance: [ cooperative, appears older than stated age Speech/Language mute Attitude/Behavior: [guarded, withdrawn] Mood: [depressed affect, anxious, irritable, angry, fearful, hopelessness Affect: [ labile, blunted constricted Orientation: [unable to participate time, person, place situation] Thought Content: [ delusions, obsessions, phobias, other] Risk Factors: [???suicidal (ideations, plan), and/or Homicidal (ideations, plan) , other] Perception: [hallucinations (auditory, visual, tactile), other] Thought Processes: [ concrete, circumstantial, tangential Concentration/Attention Span: [ impaired] [Per observation and interview with the patient] Recent Memory: [ impaired] [0, 1, 2 or 3 out of 3 in 3 minutes] Remote Memory: [ impaired] [past events, as related history] Intelligence: [avverage] [based on history, based on vocabulary, syntax, grammar , and content] Judgement: [ fair] [per patient's behavior/history of present illness] Insight: [ fair] [understanding severity of illness/history of present illness] Admitting Diagnosis: [Major depressive disorder with acute psychosis and Effexor withdrawal] Patient Strengths - Setting and pursuing goals, hopes, dreams, aspirations: [x] Resources - social, interpersonal, monetary: [x] Patient Limitations: [medication, non-compliance, pathological/unsupported environment, no interests, intellectual impairment, Initial Plan of Care: [patient admitted on involuntary basis to psychiatric unit due to her inability to communicate and function and with her acute psychosis which present which decrease a communication barrier. She'll be evaluated by nursing staff, social work and recreational therapy to be integrated in a hansen milieu therapeutic environment whereby she will be staffed and a multidisciplinary team approach on a daily basis for her progress and disposition.] Estimated Length of Stay: [4 days] due to her inability to be consistent on taking her medications she is going to have a demand hearing 10/25/2018 Initial Discharge Plan: [[place], [facility], referred to therapist Prognosis: guarded] she is participating in care at the current time Justification for Inpatient Hospitalization - [anxiety, depression resulting in significant loss of functioning.] [Emotional or behavioral conditions and complications requiring 24 hour medical and nursing care.] [Need for special drug therapy, or other therapeutic program requiring continuous hospitalization.] [Legally mandated admission.] [ (1) Acute psychosis Current Visit: Yes Status: Acute Priority: High Code(s): F23 - BRIEF PSYCHOTIC DISORDER SNOMED Code(s): 02764925 Plan: She has severe anxiety and will stop clonidine 0.1 mg twice a day, restart her Effexor at 225 mg XL by mouth daily at bedtime, Invega 3 mg mouth daily at bedtime due to the fact that she was having difficulty with insomnia She has more of a major depressive disorder with psychosis and Effexor withdrawal than any other diagnosis. 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 Change to Invega 9 mg by mouth daily at bedtime and trazodone 150 mg by mouth daily at bedtime for depression and sleep. She is less tense and irritable agitating and able to focus and concentrate and is not delusional at times.Stop clonidine and stop seroquel.she went 3 days without taking her medications and took her medication last night. We'll discuss with client and in team 10/19/2018 about converting her to Invega 234 IM injection. She has command hearing on 10/25/2018 due to the fact that she sign deferral stopped taking medicines. We talked about diet today and she is willing to try a vegan diet. She is sensitive to yeast and other refined food. I also restarted Bactrim double strength once a day more for palliative than for curative. Time with Patient: Less than 30
[2018-10-20 12:47] LABS: Glucose,Whole Blood 112 mg/dL (75-99)
[2018-10-20 17:07] LABS: Glucose,Whole Blood 113 mg/dL (75-99)
[2018-10-20] MEDS: traZODone HCL 50 MG TAB PO SCH (20:10)
[2018-10-20] MEDS: VENLAFAXINE HCL ER 75 MG CAP PO SCH (20:11)
[2018-10-20 20:13] LABS: Glucose,Whole Blood 97 mg/dL (75-99)
[2018-10-21] MEDS ORDERED: diphenhydrAMINE 50 MG CAP PO STA (00:09)
[2018-10-21] MEDS: diphenhydrAMINE 2% CREAM 28.4 GM TUBE TOPICAL PRN (01:00)
[2018-10-21 06:33] LABS: Glucose,Whole Blood 122 mg/dL (75-99)
[2018-10-21] MEDS: INSULIN ASPART 100 UNIT/ML 1 ML 10 ML VIAL SQ SCH ×4 (07:38→20:36)
[2018-10-21] MEDS: metFORMIN 500 MG TAB PO SCH ×2 (08:06→17:02)
[2018-10-21] MEDS: AMMONIUM LACTATE 12% LOTION 225 GM BTL TOPICAL SCH ×2 (08:07→21:16)
[2018-10-21] MEDS: CLOTRIMAZOLE/BETAMETH 1-0.05% LOTION 30 ML BTL TOPICAL SCH ×2 (08:07→21:16)
[2018-10-21] MEDS: SULFAMETHOX-TMP 800-160MG 1 EACH TAB PO SCH (08:07)
[2018-10-21] MEDS ORDERED: HALOPERIDOL LACTATE 5 MG/ML 1 ML VIAL IM PRN (11:41)
[2018-10-21 12:04] LABS: Glucose,Whole Blood 71 mg/dL (75-99)
[2018-10-21 16:59] LABS: Glucose,Whole Blood 94 mg/dL (75-99)
[2018-10-21 19:49] LABS: Glucose,Whole Blood 90 mg/dL (75-99)
[2018-10-21] MEDS: traZODone HCL 50 MG TAB PO SCH (21:11)
[2018-10-21] MEDS: OLANZapine 10 MG TAB PO SCH (21:11)
[2018-10-21] MEDS: VENLAFAXINE HCL ER 75 MG CAP PO SCH (21:11)
--- NOTE | 2018-10-21 21:52 | PN ---
DATE OF SERVICE: 10/21/2018 PROGRESS NOTE CHIEF COMPLAINT: The patient was delusional. She believes there were government plots against her. She was disorganized in thoughts. INTERVAL HISTORY: The patient continues to be quite distressed. She had a quiet evening last night. She slept fairly well. Today she has been up. She only goes to groups to a limited extent. She does not seem to engage much in productive conversation in groups. She continues to believe that there are various plots that put her at risk. She resists the idea of taking any medications with making statements that she believes she has no active treatment issues. On the other hand, she has been accepting her medications. She can get quite intense in talking about why she feels hospitalization was not indicated. It is noteworthy that she has developed a rash on her neck and trunk. She had just been started on Bactrim. She appears to tolerate her psychotropic medications. MENTAL STATUS: Patient gave fair eye contact. She was restless. She would respond to some questions appropriately, then she would veer off and talk quite a bit about tangential ideas. She had clear and coherent thoughts that were goal directed. Her affect was intense. Mood was depressed. She continued to exhibit paranoid thinking. There was no indication of her responding to internal stimuli. She was ambulatory with normal gait and strength. ASSESSMENT: I will continue the current diagnosis. I had an extensive discussion with the patient regarding medication options. For the most part she was resistant to considering any medication change, though it was noteworthy that just at the end of the interview she said that she would take a new medication that would be added. I will start the patient on Zyprexa 10 mg twice a day. I reviewed indications for the medication. I had discussed side effects. We will continue to focus on stabilization and discharge planning. MMODL / JESUS [place]BERTON: [id number] / [id number]
[2018-10-22 06:39] LABS: Glucose,Whole Blood 93 mg/dL (75-99)
[2018-10-22] MEDS: INSULIN ASPART 100 UNIT/ML 1 ML 10 ML VIAL SQ SCH ×4 (07:40→19:54)
[2018-10-22] MEDS: AMMONIUM LACTATE 12% LOTION 225 GM BTL TOPICAL SCH ×2 (07:41→20:11)
[2018-10-22] MEDS: metFORMIN 500 MG TAB PO SCH ×2 (07:41→17:26)
[2018-10-22] MEDS: OLANZapine 10 MG TAB PO SCH ×2 (07:42→20:09)
[2018-10-22] MEDS ORDERED: OLANZapine 10 MG TAB PO ONE (11:38)
[2018-10-22 12:21] LABS: Glucose,Whole Blood 144 mg/dL (75-99)
[2018-10-22 17:21] LABS: Glucose,Whole Blood 90 mg/dL (75-99)
[2018-10-22 19:54] LABS: Glucose,Whole Blood 140 mg/dL (75-99)
[2018-10-22] MEDS: traZODone HCL 50 MG TAB PO SCH (20:09)
[2018-10-22] MEDS: VENLAFAXINE HCL ER 75 MG CAP PO SCH (20:09)
--- NOTE | 2018-10-22 21:12 | PN ---
DATE OF SERVICE: 10/22/2018 PROGRESS NOTE CHIEF COMPLAINT: The patient was delusional. She believes there were government plots against her. She was disorganized in her thoughts. INTERVAL HISTORY: Patient has been doing fair. She had a quiet evening last night. She tends to keep to herself. She spends quite a bit of time in her room. She slept fairly well the best I am able to tell. Today she has been up. She has attended groups. When I talked to her she asked me questions about the petition and certification. She was a little disorganized in her thoughts. When she asked the questions, in the midst of trying to explain the information to her she seemed to become angry saying "all doctors are the same." She walked out and did not make any further effort to discuss her situation. It was noteworthy that a short time later, she came to the door knocked and said she wanted to let me know that she had started her period. Overall she seems to be doing somewhat better. She attended group. She has been somewhat withdrawn in some groups, a little bit more engaged in others. She seems to be coming out a little bit more. She appears to tolerate her psychotropic medications. MENTAL STATUS: Patient gave fair eye contact. She was somewhat restless. She answered questions with brief responses. She mostly was tangential in what she talked about. Her affect was intense, her mood dysphoric. She was moderately distressed. She made some indications of possibly continuing with paranoid thoughts. ASSESSMENT: I will continue the current diagnosis and treatment plan. We will continue psychotropic medications the same. Patient appears to be making progress. We will continue her antipsychotic medication the same as the most critical medication for her. We will continue to focus on stabilization and discharge planning. MMEASTONL / JESUS ALBERTON: [id number] / MTDD
[2018-10-23 06:14] LABS: Glucose,Whole Blood 88 mg/dL (75-99)
[2018-10-23] MEDS: metFORMIN 500 MG TAB PO SCH ×2 (08:42→17:35)
[2018-10-23] MEDS: OLANZapine 10 MG TAB PO SCH ×2 (08:42→20:37)
[2018-10-23] MEDS: AMMONIUM LACTATE 12% LOTION 225 GM BTL TOPICAL SCH ×2 (08:43→20:35)
[2018-10-23] MEDS: INSULIN ASPART 100 UNIT/ML 1 ML 10 ML VIAL SQ SCH ×4 (08:43→19:59)
[2018-10-23] MEDS: SODIUM CHLORIDE 0.65% NASAL SPRAY 44 ML BTL NASAL PRN (12:56)
[2018-10-23 13:14] LABS: Glucose,Whole Blood 71 mg/dL (75-99)
[2018-10-23 15:17] VITALS: BMI 29.7
[2018-10-23 17:37] LABS: Glucose,Whole Blood 96 mg/dL (75-99)
[2018-10-23 20:05] LABS: Glucose,Whole Blood 127 mg/dL (75-99)
--- NOTE | 2018-10-23 20:25 | PN ---
DATE OF SERVICE: 10/23/2018 PROGRESS NOTE CHIEF COMPLAINT: The patient was delusional. She believes there were government plots against her. She was disorganized in her thoughts. INTERVAL HISTORY: The patient has been doing fairly well. She had a quiet evening last night. She slept fairly well. Today she has been up. She comes out in the day area. She has been attending groups. She does not participate in a real active way. She tends to have a somewhat blunted affect in the group settings. For the most part she is appropriate and calm in her manner. In terms of staff observations, she seems to be doing a little better. When she is more out in the day area she seems to be little less distressed and showing a little improvement in her mood. She continues to have a focus on the question of her having an infection. She gets focused on any number of body fluids that she thinks needs to be reviewed by the lab. Her only immediate complaint is that she is getting some cramping and pain related to the start of her period, which was yesterday. She typically takes Naprosyn for that. She tolerates her psychotropic medication. MENTAL STATUS: The patient came in the office and sat in a relaxed posture. It is noteworthy that yesterday when she came into the office, she walked out and within a matter of minutes, making angry statements as she walked out about what doctors do and apparently how she has been maltreated. It is noteworthy that shortly after that she stopped back in yesterday to give me a little information. Today she stopped into the office earlier in the day just to give me an update on one thing. When I saw her this afternoon she had a more relaxed manner. She answered questions directly. Her thoughts were clear. Her affect was a little less constricted. Overall, she had a milder manner with less sense of fear, suspicion or paranoia, which has been a predominant part of her of how she presents. Her mood was quiet. She did smile a couple times. She responded to some humerus comments. She did not appear distressed at all. It is noteworthy that when she gets her medications, she will be given a small container of water to help swallow her pills. What she will do is bite the cup with her teeth and then tip her head back so that she drinks the water without touching the container with her hands. It is not clear what the purpose is for this, though the nurses say she does this every time she gets her medications. ASSESSMENT: I will continue the current diagnosis and treatment plan. Patient appears to be showing some improvement where she seems more comfortable. She is not appearing as distressed. She will continue to focus on stabilization and discharge planning. DOMINICK / MARA: [id number] / MTDD
[2018-10-23] MEDS: NAPROXEN 250 MG TAB PO SCH (20:35)
[2018-10-23] MEDS: VENLAFAXINE HCL ER 75 MG CAP PO SCH (20:37)
[2018-10-23] MEDS: traZODone HCL 50 MG TAB PO SCH (20:37)
[2018-10-24 06:28] LABS: Glucose,Whole Blood 116 mg/dL (75-99)
[2018-10-24] MEDS: INSULIN ASPART 100 UNIT/ML 1 ML 10 ML VIAL SQ SCH ×4 (07:59→20:51)
[2018-10-24] MEDS: AMMONIUM LACTATE 12% LOTION 225 GM BTL TOPICAL SCH ×2 (08:00→20:46)
[2018-10-24] MEDS: OLANZapine 10 MG TAB PO SCH ×2 (08:00→20:47)
[2018-10-24] MEDS: metFORMIN 500 MG TAB PO SCH ×2 (08:00→17:04)
[2018-10-24] MEDS: NAPROXEN 250 MG TAB PO SCH ×2 (08:00→20:46)
[2018-10-24 12:40] LABS: Glucose,Whole Blood 96 mg/dL (75-99)
--- NOTE | 2018-10-24 14:59 | PN ---
PROGRESS NOTE DATE OF SERVICE: 10/24/2018. CHIEF COMPLAINT: The patient was delusional. She believes there were government plots against her. She was disorganized in her thoughts. INTERVAL HISTORY: Patient has been doing fair. She seems to be showing some progress overall. She continues with paranoid thinking and will make comments about how she questions and distressed things going on because of fears that there may be a plot against her. It is noted that she goes through some unusual movements to try to avoid actually touching things which she believes may be contaminated. She still has quite somatic focus and talks about various infections she believes she has. She believes that she may have a sinus infection, something affecting her eyes and a urinary tract infection. This is in spite of lab work being negative. She does attend groups. She has been cooperative. She has been out on the unit a little bit more. Overall, her mood is a little more calm. She seems to be showing just a mild degree of lessening of some of her paranoid thoughts. She seems more comfortable in her interactions with staff as well as myself. She tolerates psychotropic medications. MENTAL STATUS: Patient gave good eye contact. She answered some questions appropriately and it is noteworthy that when I saw her on the unit at different times, she also made some spontaneous comments in a somewhat positive vein. Her affect was a little constricted. She was able to smile some and show a calmer manner. Her mood was reserved, though not clearly down or depressed. She did not appear significantly distressed. ASSESSMENT: I will continue the current diagnosis and treatment plan. Psychotropic medications will continue the same with the primary medicines being Effexor XR 225 mg a day and Zyprexa 10 mg twice a day indicated for major depression with psychotic features with a rule out of bipolar disorder and schizoaffective disorder. We will continue to focus on stabilization and discharge planning. MMODL / IJN: [id number] /
[2018-10-24 17:07] LABS: Glucose,Whole Blood 111 mg/dL (75-99)
[2018-10-24 20:18] LABS: Glucose,Whole Blood 104 mg/dL (75-99)
[2018-10-24] MEDS: traZODone HCL 50 MG TAB PO SCH (20:47)
[2018-10-24] MEDS: VENLAFAXINE HCL ER 75 MG CAP PO SCH (20:48)
[2018-10-25 06:50] LABS: Glucose,Whole Blood 104 mg/dL (75-99)
[2018-10-25] MEDS: INSULIN ASPART 100 UNIT/ML 1 ML 10 ML VIAL SQ SCH ×4 (07:44→20:55)
[2018-10-25] MEDS: NAPROXEN 250 MG TAB PO SCH ×2 (07:44→20:49)
[2018-10-25] MEDS: OLANZapine 10 MG TAB PO SCH (07:44)
[2018-10-25] MEDS: metFORMIN 500 MG TAB PO SCH ×2 (07:45→17:25)
[2018-10-25] MEDS: AMMONIUM LACTATE 12% LOTION 225 GM BTL TOPICAL SCH ×2 (07:45→20:55)
[2018-10-25 12:17] LABS: Glucose,Whole Blood 94 mg/dL (75-99)
[2018-10-25] MEDS: SODIUM CHLORIDE 0.65% NASAL SPRAY 44 ML BTL NASAL PRN (12:18)
--- NOTE | 2018-10-25 12:32 | P.PN ---
Subjective Progress Note Date: 10/25/18 Principal diagnosis: major depressive disorder-acute psychosis 10/05/2018: Is still remain exhausted and I would like to rest today. I encouraged patient around bed and participate in groups but she tends to isolate and hide. Discussed the adjustment in medications venlafaxine 225 mg bedtime and stop Seroquel 50 mg twice a day and start trazodone 150 mg at bedtime along with 3 mg of Invega. 10/12/2018 she started taking her medications 2 days ago but still very upset and angry. However last night she came out of her room and play cards with the other patients. 10/13/2018 she has continued take her medications but has multiple somatic complaints and is less likely to be irritable and agitated. She is isolated to her room most of the time. She has feet complaints and circulation problems which has been addressed. She still complains of mucous in her nose and throat. No thoughts of suicide or homicide today. 10/18/2018: She was lying in bed today was much more bright compliant in regards to medication and was questioning why she was getting 225 mg Effexor twice a day and was resistant the nurses and taking it twice a day. She displays no suicidal homicidal ideation. She does not appear to responding to internal stimuli and denies auditory or visual hallucinations. Next 10/20/2018; patient found lying in bed no chief complaint today of the fact she did not get a begin meal she received scrambled eggs awaiting court hearing. 10/25/[address]; still has multiple somatic compliants; not SI/HI Objective - Vital Signs Vital signs: Vital Signs Temp 97.6 F 10/24/18 06:21 Pulse 115 H 10/24/18 06:21 Resp 14 10/24/18 06:21 BP 123/76 10/24/18 06:21 Pulse Ox 95 10/03/18 21:18 - Labs CBC & Chem 7: 10/10/18 13:08 10/03/18 15:16 Labs: Abnormal Lab Results - Last 24 Hours (Table) 10/24/18 10/24/18 10/25/18 Range/Units 17:05 20:04 06:34 POC Glucose (mg/dL) 111 H 104 H 104 H (75-99) mg/dL Assessment and Plan Assessment: HPI: This is a 47-year-old female with history of psychiatric illness presents for mental health evaluation. Patient's states that the [email or web address] is out to get her, she told her family that they were planning to take her to [place] in the morning. According to her family members she has a daughter who has been admitted for psychiatric purposes in the past. And patient does have history of mental illness. Uncertain of what medication she is on. She states that she has infection, from her eyes. She is alert and oriented 3. The remainder of her comments are incoherent and nonsensical. patient presents to ED with family due to acute psychosis. patient refused to get out of vehicle, patient yelling, swearing, and states " youre not safe in your home because the [email or web address] is recording you while you're having sex and showing everyone Past Medical History Past Medical History: Diabetes Mellitus History of Any Multi-Drug Resistant Organisms: None Reported Past Surgical History: Section Past Psychological History: PTSD Smoking Status: Former smoker Past Alcohol Use History: None Reported Past Drug Use History: None Reported Musculoskeletal Examination - Abnormal/Involuntary Movements: [none, tremors, spasm, tics] Strength: [greater than antigravity (greater than/equal to 3/5) in all extremities, weakness:] Muscle Tone: [no impairment, dystonia, hypertonic/myoclonus, rigidity, flaccid] Gait: [grossly normal, antalgic, limping, in wheelchair, wide-based] Station: [grossly normal, unsteady, in wheelchair] Mental Status Examination - General Appearance: [ cooperative, appears older than stated age Speech/Language mute Attitude/Behavior: [guarded, withdrawn] Mood: [depressed affect, anxious, irritable, angry, fearful, hopelessness Affect: [ labile, blunted constricted Orientation: [unable to participate time, person, place situation] Thought Content: [ delusions, obsessions, phobias, other] Risk Factors: [???suicidal (ideations, plan), and/or Homicidal (ideations, plan) , other] Perception: [hallucinations (auditory, visual, tactile), other] Thought Processes: [ concrete, circumstantial, tangential Concentration/Attention Span: [ impaired] [Per observation and interview with the patient] Recent Memory: [ impaired] [0, 1, 2 or 3 out of 3 in 3 minutes] Remote Memory: [ impaired] [past events, as related history] Intelligence: [avverage] [based on history, based on vocabulary, syntax, grammar , and content] Judgement: [ fair] [per patient's behavior/history of present illness] Insight: [ fair] [understanding severity of illness/history of present illness] Admitting Diagnosis: [Major depressive disorder with acute psychosis and Effexor withdrawal] Patient Strengths - Setting and pursuing goals, hopes, dreams, aspirations: [x] Resources - social, interpersonal, monetary: [x] Patient Limitations: [medication, non-compliance, pathological/unsupported environment, no interests, intellectual impairment, Initial Plan of Care: [patient admitted on involuntary basis to psychiatric unit due to her inability to communicate and function and with her acute psychosis which present which decrease a communication barrier. She'll be evaluated by nursing staff, social work and recreational therapy to be integrated in a hansen milieu therapeutic environment whereby she will be staffed and a multidisciplinary team approach on a daily basis for her progress and disposition.] Estimated Length of Stay: [4 days] due to her inability to be consistent on taking her medications she is going to have a demand hearing 10/25/2018 Initial Discharge Plan: [[facility], referred to therapist Prognosis: guarded] she is participating in care at the current time Justification for Inpatient Hospitalization - [anxiety, depression resulting in significant loss of functioning.] [Emotional or behavioral conditions and complications requiring 24 hour medical and nursing care.] [Need for special drug therapy, or other therapeutic program requiring continuous hospitalization.] [Legally mandated admission.] [ (1) Acute psychosis Current Visit: Yes Status: Acute Priority: High Code(s): F23 - BRIEF PSYCHOTIC DISORDER SNOMED Code(s): 03508889 Plan: She has severe anxiety and will stop clonidine 0.1 mg twice a day, restart her Effexor at 225 mg XL by mouth daily at bedtime, Invega 3 mg mouth daily at bedtime due to the fact that she was having difficulty with insomnia She has more of a major depressive disorder with psychosis and Effexor withdrawal than any other diagnosis. 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 Change to Invega 9 mg by mouth daily at bedtime and trazodone 150 mg by mouth daily at bedtime for depression and sleep. She is less tense and irritable agitating and able to focus and concentrate and is not delusional at times.Stop clonidine and stop seroquel.she went 3 days without taking her medications and took her medication last night. We'll discuss with client and in team 10/19/2018 about converting her to Invega 234 IM injection. She has command hearing on 10/25/2018 due to the fact that she sign deferral stopped taking medicines. Stopped zyprexa since she had invega 234 mg IM injection on 10/19/2018. We talked about diet today. She is sensitive to yeast and other refined food. I also restarted Bactrim double strength once a day more for palliative than for curative. Time with Patient: Less than 30
[2018-10-25 17:28] LABS: Glucose,Whole Blood 104 mg/dL (75-99)
[2018-10-25 19:58] LABS: Glucose,Whole Blood 93 mg/dL (75-99)
[2018-10-25] MEDS: traZODone HCL 50 MG TAB PO SCH (20:50)
[2018-10-25] MEDS: VENLAFAXINE HCL ER 75 MG CAP PO SCH (20:50)
[2018-10-25] MEDS: diphenhydrAMINE 2% CREAM 28.4 GM TUBE TOPICAL PRN (20:53)
[2018-10-26 06:22] LABS: Glucose,Whole Blood 99 mg/dL (75-99)
[2018-10-26] MEDS: INSULIN ASPART 100 UNIT/ML 1 ML 10 ML VIAL SQ SCH ×4 (08:13→21:00)
[2018-10-26] MEDS: metFORMIN 500 MG TAB PO SCH ×2 (08:25→18:23)
[2018-10-26] MEDS: NAPROXEN 250 MG TAB PO SCH ×2 (08:25→20:57)
[2018-10-26] MEDS: AMMONIUM LACTATE 12% LOTION 225 GM BTL TOPICAL SCH ×2 (08:27→20:59)
[2018-10-26] MEDS: SODIUM CHLORIDE 0.65% NASAL SPRAY 44 ML BTL NASAL PRN (08:49)
[2018-10-26] MEDS: diphenhydrAMINE 2% CREAM 28.4 GM TUBE TOPICAL PRN (08:51)
--- NOTE | 2018-10-26 12:19 | P.PN ---
Subjective Progress Note Date: 10/26/18 Principal diagnosis: major depressive disorder-acute psychosis 10/05/2018: Is still remain exhausted and I would like to rest today. I encouraged patient around bed and participate in groups but she tends to isolate and hide. Discussed the adjustment in medications venlafaxine 225 mg bedtime and stop Seroquel 50 mg twice a day and start trazodone 150 mg at bedtime along with 3 mg of Invega. 10/12/2018 she started taking her medications 2 days ago but still very upset and angry. However last night she came out of her room and play cards with the other patients. 10/13/2018 she has continued take her medications but has multiple somatic complaints and is less likely to be irritable and agitated. She is isolated to her room most of the time. She has feet complaints and circulation problems which has been addressed. She still complains of mucous in her nose and throat. No thoughts of suicide or homicide today. 10/18/2018: She was lying in bed today was much more bright compliant in regards to medication and was questioning why she was getting 225 mg Effexor twice a day and was resistant the nurses and taking it twice a day. She displays no suicidal homicidal ideation. She does not appear to responding to internal stimuli and denies auditory or visual hallucinations. Next 10/20/2018; patient found lying in bed no chief complaint today of the fact she did not get a begin meal she received scrambled eggs awaiting court hearing. 10/25/[address]; still has multiple somatic compliants; not SI/HI Objective - Vital Signs Vital signs: Vital Signs Temp 97.6 F 10/24/18 06:21 Pulse 115 H 10/24/18 06:21 Resp 14 10/24/18 06:21 BP 123/76 10/24/18 06:21 Pulse Ox 95 10/03/18 21:18 - Labs CBC & Chem 7: 10/10/18 13:08 10/03/18 15:16 Labs: Abnormal Lab Results - Last 24 Hours (Table) 10/25/18 Range/Units 17:14 POC Glucose (mg/dL) 104 H (75-99) mg/dL Assessment and Plan Assessment: HPI: This is a 47-year-old female with history of psychiatric illness presents for mental health evaluation. Patient's states that the [place] [email or web address] is out to get her, she told her family that they were planning to take her to [place] in the morning. According to her family members she has a daughter who has been admitted for psychiatric purposes in the past. And patient does have history of mental illness. Uncertain of what medication she is on. She states that she has infection, from her eyes. She is alert and oriented 3. The remainder of her comments are incoherent and nonsensical. patient presents to ED with family due to acute psychosis. patient refused to get out of vehicle, patient yelling, swearing, and states " youre not safe in your home because the [facility] is recording you while you're having sex and showing everyone Past Medical History Past Medical History: Diabetes Mellitus History of Any Multi-Drug Resistant Organisms: None Reported Past Surgical History: Section Past Psychological History: PTSD Smoking Status: Former smoker Past Alcohol Use History: None Reported Past Drug Use History: None Reported Musculoskeletal Examination - Abnormal/Involuntary Movements: [none, tremors, spasm, tics] Strength: [greater than antigravity (greater than/equal to 3/5) in all extremities, weakness:] Muscle Tone: [no impairment, dystonia, hypertonic/myoclonus, rigidity, flaccid] Gait: [grossly normal, antalgic, limping, in wheelchair, wide-based] Station: [grossly normal, unsteady, in wheelchair] Mental Status Examination - General Appearance: [ cooperative, appears older than stated age Speech/Language soft Attitude/Behavior: [cooperative] Mood: [depressed, affect, anxious, irritable, angry, fearful, hopelessness Affect: [ labile Orientation: [ participate time, person, place situation] Thought Content: [ wnl] Risk Factors: [denies suicidal (ideations, plan), and/or Homicidal (ideations, plan)] Perception: [denies hallucinations (auditory, visual, tactile)] Thought Processes: [ concrete, circumstantial, tangential Concentration/Attention Span: [ impaired] [Per observation and interview with the patient] Recent Memory: [ wnl] [3 out of 3 in 3 minutes] Remote Memory: [ wnl] [past events, as related history] Intelligence: [average] [based on history, based on vocabulary, syntax, grammar , and content] Judgement: [ good] [per patient's behavior/history of present illness] Insight: [ good] [understanding severity of illness/history of present illness] Admitting Diagnosis: [Major depressive disorder with acute psychosis and Effexor withdrawal] Patient Strengths - Setting and pursuing goals, hopes, dreams, aspirations: [x] Resources - social, interpersonal, monetary: [x] Patient Limitations: [medication, non-compliance, pathological/unsupported environment, no interests, intellectual impairment, Initial Plan of Care: [patient admitted on involuntary basis to psychiatric unit due to her inability to communicate and function and with her acute psychosis which present which decrease a communication barrier. She'll be evaluated by nursing staff, social work and recreational therapy to be integrated in a hansen milieu therapeutic environment whereby she will be staffed and a multidisciplinary team approach on a daily basis for her progress and disposition.] Estimated Length of Stay: [1 days] due to her inability to be consistent on taking her medications she is going to have a demand hearing 10/25/2018 Initial Discharge Plan: [[facility], referred to therapist Prognosis: guarded] she is participating in care at the current time Justification for Inpatient Hospitalization - [anxiety, depression resulting in significant loss of functioning.] [Emotional or behavioral conditions and complications requiring 24 hour medical and nursing care.] [Need for special drug therapy, or other therapeutic program requiring continuous hospitalization.] [Legally mandated admission.] [ (1) Acute psychosis Current Visit: Yes Status: Acute Priority: High Code(s): F23 - BRIEF PSYCHOTIC DISORDER SNOMED Code(s): 50218809 Plan: She has severe anxiety and will stop clonidine 0.1 mg twice a day, restart her Effexor at 225 mg XL by mouth daily at bedtime, Invega 3 mg mouth daily at bedtime due to the fact that she was having difficulty with insomnia She has more of a major depressive disorder with psychosis and Effexor withdrawal than any other diagnosis. 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 Change to Invega 9 mg by mouth daily at bedtime and trazodone 150 mg by mouth daily at bedtime for depression and sleep. She is less tense and irritable agitating and able to focus and concentrate and is not delusional at times.Stop clonidine and stop seroquel.she went 3 days without taking her medications and took her medication last night. We'll discuss with client and in team 10/19/2018 about converting her to Invega 234 IM injection. She has command hearing on 10/25/2018 due to the fact that she sign deferral stopped taking medicines. Stopped zyprexa since she had invega 234 mg IM injection on 10/19/2018. We talked about diet today. She is sensitive to yeast and other refined food. I also restarted Bactrim double strength once a day more for palliative than for curative. Time with Patient: Greater than 30
[2018-10-26 12:28] LABS: Glucose,Whole Blood 79 mg/dL (75-99)
[2018-10-26 17:33] LABS: Glucose,Whole Blood 91 mg/dL (75-99)
[2018-10-26 20:01] LABS: Glucose,Whole Blood 156 mg/dL (75-99)
[2018-10-26] MEDS: traZODone HCL 50 MG TAB PO SCH (20:57)
[2018-10-26] MEDS: VENLAFAXINE HCL ER 75 MG CAP PO SCH (20:57)
[2018-10-26] MEDS ORDERED: SULFAMETHOX-TMP 800-160MG 1 EACH TAB PO SCH (21:00)
[2018-10-27 06:15] VITALS: BP 108/59; PULSE 91; RESP 15; TEMP 98.1
[2018-10-27 06:55] LABS: Glucose,Whole Blood 94 mg/dL (75-99)
[2018-10-27] MEDS: INSULIN ASPART 100 UNIT/ML 1 ML 10 ML VIAL SQ SCH (07:34)
[2018-10-27] MEDS: NAPROXEN 250 MG TAB PO SCH (08:34)
[2018-10-27] MEDS: metFORMIN 500 MG TAB PO SCH (08:34)
[2018-10-27] MEDS: diphenhydrAMINE 2% CREAM 28.4 GM TUBE TOPICAL PRN (08:35)
[2018-10-27] MEDS: AMMONIUM LACTATE 12% LOTION 225 GM BTL TOPICAL SCH (08:35)
[2018-10-27] MEDS ORDERED: PALIPERIDONE IM 234 MG/1.5 ML SYG IM STA (09:24)
--- NOTE | 2018-10-27 09:34 | P.DS ---
Providers Date of admission: 10/03/18 07:13 Expected date of discharge: 10/27/18 Attending physician: Roger Clay DO Consults: 10/03/18 07:27 Consult Physician Routine Consulting Provider: [facility] Consult Reason/Comments: Routine H & P and medical follow up Do you want consulting provider notified?: Already Contacted 10/03/18 07:37 Consult Physician Routine Consulting Provider: [facility] Consult Reason/Comments: H & P routine and follow up care Do you want consulting provider notified?: Already Contacted 10/19/18 09:39 Consult Physician Routine Consulting Provider: [facility] Consult Reason/Comments: compliants of green/yellow mucus Do you want consulting provider notified?: Yes Primary care physician: Stated None - Discharge Diagnosis(es) (1) Acute psychosis HPI: This is a 47-year-old female with history of psychiatric illness presents for mental health evaluation. Patient's states that the [place] [employer] is out to get her, she told her family that they were planning to take her to [place] in the morning. According to her family members she has a daughter who has been admitted for psychiatric purposes in the past. And patient does have history of mental illness. Uncertain of what medication she is on. She states that she has infection, from her eyes. She is alert and oriented 3. The remainder of her comments are incoherent and nonsensical. patient presents to ED with family due to acute psychosis. patient refused to get out of vehicle, patient yelling, swearing, and states " youre not safe in your home because the [facility] is recording you while you're having sex and showing everyone Past Medical History Past Medical History: Diabetes Mellitus type II uses metformin and insulin sliding scale History of Any Multi-Drug Resistant Organisms: None Reported Past Surgical History: Section Past Psychological History: PTSD Smoking Status: Former smoker Past Alcohol Use History: None Reported Past Drug Use History: None Reported Current Visit: Yes Status: Acute Priority: Low Hospital Course: Plan of Care: [patient admitted on involuntary basis to psychiatric unit due to her inability to communicate and function and with her acute psychosis which present which decrease a communication barrier. 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 Change to Invega 9 mg by mouth daily at bedtime and trazodone 150 mg by mouth daily at bedtime for depression and sleep. She is less tense and irritable agitating and able to focus and concentrate and is not delusional at times.Stop clonidine and stop seroquel.she went 3 days without taking her medications and took her medication last night. We'll discuss with client and in team 10/19/2018 about converting her to Invega 234 IM injection. Injection should be 11/17/2018 for Invega 234 IM injection She has command hearing on 10/25/2018 due to the fact that she sign deferral stopped taking medicines. Stopped zyprexa since she had invega 234 mg IM injection on 10/19/2018. We talked about diet today. She is sensitive to yeast and other refined food. I also restarted Bactrim double strength once a day more for palliative than for curative. She has done well on her treatment here even though she was resistant at first and talk multiple efforts and a court hearing to get her here to a medical treatment plan. Mental status exam on day of discharge: The patient presents alert, pleasant, and cooperative. There calmly seated without any agitated behavior. [She] reports that [her] mood is good. Affect is congruent and euthymic. [She] deny having any suicidal or homicidal ideation intent or plan. [She] denies any auditory or visual hallucinations. There is no evidence of any delusional thought content. [Her] thought process is linear and goal-directed. [Her] speech is fluent and nonpressured. [Her] memory and concentration is grossly intact for the purposes of this session. Discharge Medication List Insulin Aspart [NovoLOG (formulary)] 0 unit SQ ACHS 30 Days #1 vial 10/27/18 [Rx ] Paliperidone IM [Invega Sustenna] 234 mg IM ONCE 28 Days #1 syringe 10/27/18 [Rx ] Sulfamethox-Tmp 800-160Mg [Bactrim DS 800-160 mg] 1 each PO 2100 30 Days #30 tab 10/27/18 [Rx] Venlafaxine HCl ER [Effexor XR] 225 mg PO HS 30 Days #90 cap.er.24h 10/27/18 [Rx ] metFORMIN HCL [Glucophage] 500 mg PO BID-W/MEALS 30 Days #60 tab 10/27/18 [Rx] traZODone HCL [Desyrel] 150 mg PO HS 30 Days #90 tab 10/27/18 [Rx] Patient Condition at Discharge: Stable Plan - Discharge Summary Discharge Rx Participant: Yes New Discharge Prescriptions: New Insulin Aspart [NovoLOG (formulary)] 0 unit SQ ACHS 30 Days #1 vial metFORMIN HCL [Glucophage] 500 mg PO BID-W/MEALS 30 Days #60 tab Sulfamethox-Tmp 800-160Mg [Bactrim DS 800-160 mg] 1 each PO 2100 30 Days #30 tab traZODone HCL [Desyrel] 150 mg PO HS 30 Days #90 tab Venlafaxine HCl ER [Effexor XR] 225 mg PO HS 30 Days #90 cap.er.24h Paliperidone IM [Invega Sustenna] 234 mg IM ONCE 28 Days #1 syringe Discharge Medication List Insulin Aspart [NovoLOG (formulary)] 0 unit SQ ACHS 30 Days #1 vial 10/27/18 [Rx ] Paliperidone IM [Invega Sustenna] 234 mg IM ONCE 28 Days #1 syringe 10/27/18 [Rx ] Sulfamethox-Tmp 800-160Mg [Bactrim DS 800-160 mg] 1 each PO 2100 30 Days #30 tab 10/27/18 [Rx] Venlafaxine HCl ER [Effexor XR] 225 mg PO HS 30 Days #90 cap.er.24h 10/27/18 [Rx ] metFORMIN HCL [Glucophage] 500 mg PO BID-W/MEALS 30 Days #60 tab 10/27/18 [Rx] traZODone HCL [Desyrel] 150 mg PO HS 30 Days #90 tab 10/27/18 [Rx] Follow up Appointment(s)/Referral(s): [facility] [Outside] - 11/01/18 8:30 am (11/01/18 at 830 with intake ) None,Stated [Primary Care Provider] - 1-2 days [facility] [NON-STAFF] - 1 Week Moustapha Burr MD [STAFF PHYSICIAN] - 1 Week (Follow-up Outpatient with Dr. Moustapha Burr Vascular Surgeon for PAD with callus formation to bilat. feet; Pt. is a diabetic.) Activity/Diet/Wound Care/Special Instructions: Remove all weapons and firearms from the home; Refrain from street drugs and alcohol; Diet and activity as tolerated; Follow-up with your PCP in 1-2 days; Keep all scheduled follow-up appointments for continuity of care; Take all meds. as prescribed; When you are in need of prescription refills, contact either your PCP or your aftercare psychiatrist; If you worsen or have any problems, call the Crisis Line at or go to the nearest for a psychiatric evaluation. Discharge Disposition: HOME SELF-CARE
== END 2018-10-27 10:42 | disposition home or self-care (01) | DRG 885 ==
LOC: EC 02:33 → 3MHU 07:13
PROVIDERS: ADMIT Psychiatry & Neurology Psychiatry; ATTEND Psychiatry & Neurology Psychiatry
DX: F32.3 Major depressive disorder, single episode, severe with psychotic features (principal); A41.9 Sepsis, unspecified organism; N39.0 Urinary tract infection, site not specified; F13.239 Sedative, hypnotic or anxiolytic dependence with withdrawal, unspecified; B35.3 Tinea pedis; B37.3 Candidiasis of vulva and vagina; E11.42 Type 2 diabetes mellitus with diabetic polyneuropathy; E11.65 Type 2 diabetes mellitus with hyperglycemia; F43.10 Post-traumatic stress disorder, unspecified; L30.9 Dermatitis, unspecified; Z91.81 History of falling; Z79.4 Long term (current) use of insulin; Z79.899 Other long term (current) drug therapy; Z87.891 Personal history of nicotine dependence; T43.96XA Underdosing of unspecified psychotropic drug, initial encounter; Z91.128 Patient's intentional underdosing of medication regimen for other reason; G47.00 Insomnia, unspecified; Z91.19 Patient's noncompliance with other medical treatment and regimen; Z81.8 Family history of other mental and behavioral disorders; E86.0 Dehydration
CPT/HCPCS: 71045; 80053; 80061; 80306; 81001; 81025; 82075; 82248; 83036; 83605; 84443; 85025; 87040; 87077; 87086; 87186; 93005; 99285

== ENCOUNTER → 2019-06-26 | Outpatient (CLI) | payer BC ==
--- NOTE | 2019-06-28 10:28 | MM ---
Reason for exam: screening (asymptomatic). Last mammogram was performed 1 year and 7 months ago. History: Took hormonal contraceptives for 10 years. Physical Findings: A clinical breast exam by your physician is recommended on an annual basis and results should be correlated with mammographic findings. MG Screening Mammo w CAD Bilateral CC and MLO view(s) were taken. Prior study comparison: December 07, 2017, bilateral MG screening mammo w CAD. January 14, 2016, bilateral MG screening mammo w CAD. There are scattered fibroglandular densities. No significant changes when compared with prior studies. ASSESSMENT: Benign, BI-RAD 2 RECOMMENDATION: Routine screening mammogram of both breasts in 1 year.
== END | disposition home or self-care (01) ==
LOC: RADMAMWWP 11:56
PROVIDERS: ATTEND Obstetrics & Gynecology
DX: Z12.31 Encounter for screening mammogram for malignant neoplasm of breast (principal)
CPT/HCPCS: 77067